=== PATIENT | female | born 1975 | race Caucasian/White ===

== ENCOUNTER 2022-09-16 17:37 | Emergency (ER) | payer MEDICAID, OTHER ==
[~2022-09-16] VITALS: Ht 157.5 cm; Wt 104.0 kg
[2022-09-16] MEDS ORDERED: AMOXICILLIN 200MG/5ml ORAL Susp 50ML PO ONE (19:45)
[2022-09-16] MEDS ORDERED: CHL12OR MT (20:17)
[2022-09-16] MEDS ORDERED: AMOX500C2 PO (20:17)
[2022-09-16 21:05] VITALS: BP 136/87
== END 2022-09-16 21:05 | disposition home or self-care (01) ==
LOC: EDBD 17:37 → ER 17:37
DX: F15.10 Other stimulant abuse, uncomplicated (principal); Z65.9 Problem related to unspecified psychosocial circumstances

== ENCOUNTER 2023-02-06 23:48 | Inpatient (IN) | payer MEDICAID ==
[~2023-02-06] VITALS: Ht 154.9 cm; Wt 97.0 kg
[~2023-02-06 23:48] MED LIST: AMOX500C2 PO; CHL12OR MT
[2023-02-07 01:40] VITALS: PULSE 103; RESP 16; O2SAT 97
[2023-02-07] MEDS ORDERED: IOHEXOL 350 MG/ML 100ML IJ ONE (01:57)
[2023-02-07 02:21] LABS: Basophils # (auto) 0 10 ^3/uL (0-0.2); Basophils % (auto) 0.5 % (0.0-2.0); Eosinophils # (auto) 0.1 10 ^3/uL (0-0.8); Eosinophils % (auto) 1.3 % (0.0-7.0); Hemoglobin 12.2 g/dL (12.2-16.2); Lymphocytes # (auto) 1.3 10 ^3/uL (0.4-5.4); Lymphocytes % (auto) 16.9 % (10.0-50.0); Mean Corpuscular Hemoglobin 27.5 pg (28.0-32.0); Mean Corpuscular Hgb Conc. 32.2 g/dL (32.0-36.0); Mean Corpuscular Volume 85.3 fL (80.0-100.0); Monocytes # (auto) 0.6 10 ^3/uL (0-1.3); Neutrophils # (auto) 5.9 10 ^3/uL (1.6-8.6); Neutrophils % (auto) 74.3 % (37.0-80.0); Nucleated Red Blood Cells % 0.1 %; Red Blood Cells 4.45 10^6/uL (4.0-5.20); Red Cell Distribution Width 16.2 % (11.8-14.3)
[2023-02-07 02:33] LABS: Acetaminophen < 2.0 UG/ML (10.0-20.0); Alanine Aminotransferase 16 U/L (7-40); Alkaline Phosphatase 97 U/L (46-116); Anion Gap 5 (5-15); Aspartate Aminotransferase 11 U/L (13-40); BUN/Creatinine Ratio 6.3 (10.0-20.0); Beta HCG, Quantitative 1.8 mIU/mL (1.5-4.2); Blood Alcohol 4.8 mg/dL (<10); Blood Urea Nitrogen 6 mg/dL (9-23); Calcium 8.7 mg/dL (8.7-10.4); Carbon Dioxide 26 mmol/L (20-30); Chloride 98 mmol/L (98-107); Magnesium 1.8 mg/dL (1.6-2.6); Potassium 3.9 mmol/L (3.5-5.1); Salicylate < 3.0 mg/dL (2.8-20.0); Sodium 129 mmol/L (136-145)
[2023-02-07 02:34] LABS: Bilirubin, Total 0.4 mg/dL (0.2-1.0); Total Protein 7.1 g/dL (5.7-8.2)
[2023-02-07 02:35] LABS: INR 0.99 (0.9-1.15); Partial Thromboplastin Time 26.5 SEC (24.5-34.5); Prothrombin Time 10.4 sec (9.3-11.8)
[2023-02-07 02:37] LABS: Thyroid Stimulating Hormone 7.39 uIU/mL (0.358-3.74)
[2023-02-07 02:38] LABS: Glucose 597 mg/dL (74-106)
[2023-02-07] MEDS ORDERED: SODIUM CHLORIDE 0.9% 2,000 ML IV ONE (02:41)
[2023-02-07] MEDS ORDERED: InsuLIN REG 1unit/0.01ml Soln (100units/ml) IV ONE (02:41)
[2023-02-07 03:47] LABS: Erythrocyte Sedimentation Rate 25 mm/hr (0-20)
[2023-02-07 06:54] LABS: Urine Bacteria NONE SEEN /hpf (None Seen); Urine Blood Negative /uL (Negative); Urine Clarity Clear (Clear); Urine Protein, UAD Negative (Negative); Urine Specific Gravity 1.032 (1.001-1.035); Urine Urobilinogen Normal (Negative); Urine WBC 13 /hpf (0 - 5); Urine pH 6.5 (5.0-8.0)
[2023-02-07] MEDS ORDERED: LACTATED RINGER'S 1,000 ML IV ONE (07:00)
[2023-02-07] MEDS ORDERED: PIPERACILLIN-TAZOB 3.375GM 100 ML IV ONE (07:00)
[2023-02-07] MEDS ORDERED: VANCOMYCIN 1GM/250ML 250 ML IV ONE (07:00)
[2023-02-07 07:11] LABS: Amphetamine Screen, Urine Neg (NEGATIVE); Barbiturate Scree,Urine Neg (NEGATIVE); Benzodiazephine Screen, Urine Neg (NEGATIVE); Cocaine Screen, Urine Neg (NEGATIVE); Opiate Scree,Urine Neg (NEGATIVE)
[2023-02-07 07:12] LABS: Cannabinoid Screen, Urine Neg (NEGATIVE); Phencyclidine Screen, Urine Neg (NEGATIVE)
[2023-02-07 07:22] LABS: Urine Color STRAW (Yellow)
[2023-02-07] MEDS ORDERED: HALOPERIDOL LACTATE 5 MG/ML INJ VIAL IM ONE (07:30)
[2023-02-07] MEDS ORDERED: diphenhdrAMINE HCL 50 MG/1 ML VL ONE (07:42)
[2023-02-07] MEDS ORDERED: LORazepam 2MG/ML-1ML VIAL ONE (07:42)
[2023-02-07 07:45] VITALS: O2SAT 96
[2023-02-07] MEDS ORDERED: diphenhdrAMINE HCL 50 MG/1 ML VL IM ONE (07:45)
[2023-02-07] MEDS ORDERED: LORazepam 2MG/ML-1ML VIAL IM ONE (07:45)
[2023-02-07] MEDS ORDERED: VANCOMYCIN PER PHARMACY 0 MG IV SCH (08:45)
[2023-02-07] MEDS ORDERED: MORPHINE SULFATE INJ 2 MG/ml SYRG IV PRN (08:45)
[2023-02-07] MEDS ORDERED: cefTRIAXone 1GM/50ML D5W 50 ML IV ONE (08:45)
[2023-02-07] MEDS ORDERED: DEXTROSE (50%) 50ML SYRG IV PRN (08:45)
[2023-02-07] MEDS ORDERED: NITROGLYCERIN 0.4 MG SL TAB SL PRN (08:45)
[2023-02-07 09:09] LABS: LDL Cholesterol 100 mg/dL (< 100); Triglycerides 202 mg/dL (< 150)
[2023-02-07 09:11] LABS: Cholesterol 150 mg/dL (< 200); HDL Cholesterol 35 mg/dL (40-59)
[2023-02-07] MEDS: VANCOMYCIN 1GM/250ML 250 ML IV SCH ×3 (09:30→18:00)
[2023-02-07] MEDS: SODIUM CHLORIDE 0.9% 1,000 ML IV SCH ×2 (09:41→17:05)
[2023-02-07] MEDS: ASCORBIC ACID 500 MG TAB PO SCH ×2 (10:00→22:29)
[2023-02-07] MEDS: ZINC SULFATE 220mg CAP or TAB PO SCH (10:00)
[2023-02-07] MEDS: MULTIPLE VITAMIN TAB PO SCH (10:00)
[2023-02-07] MEDS: ENOXAPARIN SOD 60 MG/0.6 ML SYRINGE SC SCH ×3 (11:43→22:37)
[2023-02-07] MEDS: cefTRIAXone 1GM/50ML D5W 50 ML IV SCH (11:44)
[2023-02-07] MEDS: ACCU-CHEK COMFORT CURVE STRIP VI SCH ×3 (11:44→22:29)
[2023-02-07] MEDS: InsuLIN REG 1unit/0.01ml Soln (100units/ml) SC SCH ×4 (11:57→22:36)
[2023-02-07 12:53] LABS: Free T3 2.99 pg/mL (2.3-4.2); Free T4 (Free Thyroxine) 0.81 ng/dL (0.89-1.76)
[2023-02-07 20:00] VITALS: PULSE 92; RESP 20; O2SAT 96
[2023-02-08 01:20] LABS: COVID19 ANTIGEN SOFIA FIA NEGATIVE (NEGATIVE)
[2023-02-08] MEDS: SODIUM CHLORIDE 0.9% 1,000 ML IV SCH ×3 (01:25→18:05)
[2023-02-08] MEDS: VANCOMYCIN 1GM/250ML 250 ML IV SCH ×3 (03:14→19:00)
[2023-02-08] MEDS: InsuLIN REG 1unit/0.01ml Soln (100units/ml) SC SCH ×3 (07:00→17:00)
[2023-02-08] MEDS: ACCU-CHEK COMFORT CURVE STRIP VI SCH ×4 (07:21→22:28)
[2023-02-08 08:00] VITALS: PULSE 103; RESP 26; O2SAT 97
[2023-02-08] MEDS: cefTRIAXone 1GM/50ML D5W 50 ML IV SCH (09:16)
[2023-02-08 10:14] LABS: Basophils # (auto) 0 10 ^3/uL (0-0.2); Basophils % (auto) 0.4 % (0.0-2.0); Eosinophils # (auto) 0.1 10 ^3/uL (0-0.8); Eosinophils % (auto) 0.9 % (0.0-7.0); Hematocrit 37.9 % (36.0-46.0); Hemoglobin 12.4 g/dL (12.2-16.2); Lymphocytes # (auto) 1.8 10 ^3/uL (0.4-5.4); Lymphocytes % (auto) 17.6 % (10.0-50.0); Mean Corpuscular Hemoglobin 27.9 pg (28.0-32.0); Mean Corpuscular Hgb Conc. 32.8 g/dL (32.0-36.0); Monocytes # (auto) 0.7 10 ^3/uL (0-1.3); Monocytes % (auto) 6.4 % (0.0-12.0); Neutrophils # (auto) 7.6 10 ^3/uL (1.6-8.6); Neutrophils % (auto) 74.7 % (37.0-80.0); Nucleated Red Blood Cells % 0.2 %; Red Blood Cells 4.46 10^6/uL (4.0-5.20); White Blood Cell 10.2 10^3/uL (4.4-10.8)
[2023-02-08 10:33] LABS: Alanine Aminotransferase 16 U/L (7-40); Alkaline Phosphatase 85 U/L (46-116); Anion Gap 5 (5-15); BUN/Creatinine Ratio 13.8 (10.0-20.0); Blood Urea Nitrogen 9 mg/dL (9-23); Calcium 8.8 mg/dL (8.5-10.1); Carbon Dioxide 26 mmol/L (20-30); Chloride 102 mmol/L (98-107); Glucose 250 mg/dL (74-106); Potassium 4.3 mmol/L (3.5-5.1); Sodium 133 mmol/L (136-145)
[2023-02-08 10:34] LABS: Albumin 3.7 g/dL (3.2-4.8); Aspartate Aminotransferase 19 U/L (13-40)
[2023-02-08 10:35] LABS: Bilirubin, Total 0.6 mg/dL (0.2-1.0); Total Protein 6.8 g/dL (5.7-8.2)
[2023-02-08] MEDS: ASCORBIC ACID 500 MG TAB PO SCH (12:55)
[2023-02-08] MEDS: MULTIPLE VITAMIN TAB PO SCH (12:55)
[2023-02-08] MEDS: ZINC SULFATE 220mg CAP or TAB PO SCH (12:55)
[2023-02-08] MEDS: ENOXAPARIN SOD 60 MG/0.6 ML SYRINGE SC SCH (12:55)
[2023-02-08 19:10] VITALS: BP 107/58; PULSE 97; RESP 18; TEMP 97.9; O2SAT 93
[2023-02-08 20:00] VITALS: PULSE 100; PULSE 92; RESP 18; O2SAT 96
[2023-02-08] MEDS: ACETAMINOPHEN 325 MG TAB PO PRN (20:26)
[2023-02-09] MEDS: InsuLIN REG 1unit/0.01ml Soln (100units/ml) SC SCH ×5 (02:45→22:08)
[2023-02-09] MEDS: ENOXAPARIN SOD 60 MG/0.6 ML SYRINGE SC SCH ×3 (02:47→22:02)
[2023-02-09] MEDS: ACETAMINOPHEN 325 MG TAB PO PRN ×4 (02:47→20:06)
[2023-02-09] MEDS: VANCOMYCIN 1GM/250ML 250 ML IV SCH ×3 (03:00→17:31)
[2023-02-09] MEDS: ASCORBIC ACID 500 MG TAB PO SCH ×3 (03:02→22:08)
[2023-02-09 05:00] VITALS: BP 107/64; PULSE 93; RESP 18; TEMP 98.5; O2SAT 92
[2023-02-09] MEDS: ACCU-CHEK COMFORT CURVE STRIP VI SCH ×4 (06:02→21:59)
[2023-02-09 08:00] VITALS: PULSE 80
[2023-02-09] MEDS ORDERED: VANCOMYCIN 1GM/250ML 250 ML IV SCH ×2 (08:00→09:30)
[2023-02-09] MEDS: cefTRIAXone 1GM/50ML D5W 50 ML IV SCH (09:35)
[2023-02-09 09:45] VITALS: BP 114/74; PULSE 81; RESP 18; TEMP 98.3; O2SAT 95
[2023-02-09] MEDS: MULTIPLE VITAMIN TAB PO SCH (10:00)
[2023-02-09] MEDS: ZINC SULFATE 220mg CAP or TAB PO SCH (10:00)
[2023-02-09] MEDS: SODIUM CHLORIDE 0.9% 1,000 ML IV SCH (10:50)
[2023-02-09 20:00] VITALS: PULSE 85
[2023-02-09 22:00] VITALS: BP 114/66; PULSE 84; RESP 18; TEMP 97.8; O2SAT 95
[2023-02-10] VITALS (7 sets, daily range): BP systolic 101–135; BP diastolic 64–88; PULSE 74–99; RESP 16–20; TEMP 97.9–98.5; O2SAT 93–98
[2023-02-10] MEDS: ACETAMINOPHEN 325 MG TAB PO PRN (01:40)
[2023-02-10] MEDS: InsuLIN REG 1unit/0.01ml Soln (100units/ml) SC SCH ×4 (05:47→22:00)
[2023-02-10] MEDS: ACCU-CHEK COMFORT CURVE STRIP VI SCH ×4 (05:47→22:00)
[2023-02-10] MEDS ORDERED: VANCOMYCIN 1GM/250ML 250 ML IV SCH (08:00)
[2023-02-10] MEDS: ZINC SULFATE 220mg CAP or TAB PO SCH (09:55)
[2023-02-10] MEDS: MULTIPLE VITAMIN TAB PO SCH (09:56)
[2023-02-10] MEDS: ASCORBIC ACID 500 MG TAB PO SCH ×2 (09:56→22:52)
[2023-02-10] MEDS: ENOXAPARIN SOD 60 MG/0.6 ML SYRINGE SC SCH ×2 (09:56→22:52)
[2023-02-10] MEDS: NICOTINE 21MG/24 HR TOPICAL PATCH TD SCH (09:57)
[2023-02-10] MEDS: cefTRIAXone 1GM/50ML D5W 50 ML IV SCH (10:52)
[2023-02-10] MEDS: SODIUM CHLORIDE 0.9% 1,000 ML IV SCH ×3 (11:45→23:57)
[2023-02-10] MEDS: VANCOMYCIN 1GM/250ML 250 ML IV SCH ×2 (12:24→20:11)
[2023-02-10 14:32] LABS: Chloride 104 mmol/L (98-107); Sodium 135 mmol/L (136-145)
[2023-02-10 14:33] LABS: Anion Gap 7 (5-15); Carbon Dioxide 24 mmol/L (20-30)
[2023-02-10 14:34] LABS: Calcium 8.7 mg/dL (8.7-10.4)
[2023-02-10 14:38] LABS: Glucose 155 mg/dL (74-106)
[2023-02-10 14:43] LABS: BUN/Creatinine Ratio 8.9 (10.0-20.0); Basophils # (auto) 0 10 ^3/uL (0-0.2); Basophils % (auto) 0.5 % (0.0-2.0); Blood Urea Nitrogen < 5 mg/dL (9-23); Eosinophils # (auto) 0.1 10 ^3/uL (0-0.8); Eosinophils % (auto) 2.5 % (0.0-7.0); Hemoglobin 11.5 g/dL (12.2-16.2); Lymphocytes # (auto) 1.7 10 ^3/uL (0.4-5.4); Lymphocytes % (auto) 32.7 % (10.0-50.0); Mean Corpuscular Hemoglobin 27.4 pg (28.0-32.0); Mean Corpuscular Hgb Conc. 32.8 g/dL (32.0-36.0); Mean Corpuscular Volume 83.4 fL (80.0-100.0); Monocytes # (auto) 0.5 10 ^3/uL (0-1.3); Neutrophils # (auto) 2.8 10 ^3/uL (1.6-8.6); Neutrophils % (auto) 55.3 % (37.0-80.0); Red Cell Distribution Width 15.2 % (11.8-14.3); White Blood Cell 5.1 10^3/uL (4.4-10.8)
[2023-02-11] MEDS: VANCOMYCIN 1GM/250ML 250 ML IV SCH ×3 (04:45→20:22)
[2023-02-11 04:52] VITALS: BP 133/68; PULSE 90; RESP 17; TEMP 97.8; O2SAT 94
[2023-02-11] MEDS: ACETAMINOPHEN 325 MG TAB PO PRN (06:19)
[2023-02-11 06:26] LABS: Calcium 8.6 mg/dL (8.7-10.4); Chloride 103 mmol/L (98-107); Potassium 4.3 mmol/L (3.5-5.1); Sodium 134 mmol/L (136-145)
[2023-02-11 06:27] LABS: Anion Gap 6 (5-15); Carbon Dioxide 25 mmol/L (20-30)
[2023-02-11 06:32] LABS: BUN/Creatinine Ratio 7.1 (10.0-20.0); Blood Urea Nitrogen 5 mg/dL (9-23); Glucose 289 mg/dL (74-106)
[2023-02-11 06:47] LABS: Basophils # (auto) 0.1 10 ^3/uL (0-0.2); Basophils % (auto) 1.1 % (0.0-2.0); Eosinophils # (auto) 0.1 10 ^3/uL (0-0.8); Eosinophils % (auto) 2.3 % (0.0-7.0); Hematocrit 36.8 % (36.0-46.0); Hemoglobin 11.9 g/dL (12.2-16.2); Lymphocytes # (auto) 1.7 10 ^3/uL (0.4-5.4); Lymphocytes % (auto) 31.1 % (10.0-50.0); Mean Corpuscular Hemoglobin 27.1 pg (28.0-32.0); Mean Corpuscular Hgb Conc. 32.4 g/dL (32.0-36.0); Mean Corpuscular Volume 83.7 fL (80.0-100.0); Monocytes # (auto) 0.5 10 ^3/uL (0-1.3); Neutrophils # (auto) 3.1 10 ^3/uL (1.6-8.6); Neutrophils % (auto) 56.5 % (37.0-80.0); Nucleated Red Blood Cells % 0.3 %; Red Cell Distribution Width 15.4 % (11.8-14.3); White Blood Cell 5.5 10^3/uL (4.4-10.8)
[2023-02-11] MEDS: InsuLIN REG 1unit/0.01ml Soln (100units/ml) SC SCH ×4 (07:00→22:00)
[2023-02-11] MEDS: ACCU-CHEK COMFORT CURVE STRIP VI SCH ×4 (07:12→22:00)
[2023-02-11 08:00] VITALS: PULSE 80
[2023-02-11] MEDS: cefTRIAXone 1GM/50ML D5W 50 ML IV SCH (08:42)
[2023-02-11] MEDS: NICOTINE 21MG/24 HR TOPICAL PATCH TD SCH (08:43)
[2023-02-11 09:00] VITALS: BP 99/49; PULSE 80; RESP 20; TEMP 97.6; O2SAT 96
[2023-02-11] MEDS: MULTIPLE VITAMIN TAB PO SCH (10:00)
[2023-02-11] MEDS: ASCORBIC ACID 500 MG TAB PO SCH ×2 (10:00→22:00)
[2023-02-11] MEDS: ENOXAPARIN SOD 60 MG/0.6 ML SYRINGE SC SCH ×2 (10:00→22:00)
[2023-02-11] MEDS: ZINC SULFATE 220mg CAP or TAB PO SCH (10:00)
[2023-02-11] MEDS: SODIUM CHLORIDE 0.9% 1,000 ML IV SCH (12:45)
[2023-02-11 13:00] VITALS: BP 105/55; PULSE 88; RESP 18; TEMP 97.8; O2SAT 95
[2023-02-11 20:00] VITALS: PULSE 88
[2023-02-11 22:00] VITALS: BP 120/43; PULSE 82; RESP 18; TEMP 97.6; O2SAT 100
[2023-02-11] MEDS: NYSTATIN TOPICAL POWDER 15GM TOP SCH (22:00)
[2023-02-12] VITALS (7 sets, daily range): BP systolic 111–130; BP diastolic 64–87; PULSE 81–89; RESP 17–20; TEMP 97.5–98.6; O2SAT 95–98
[2023-02-12] MEDS: ACETAMINOPHEN 325 MG TAB PO PRN (02:48)
[2023-02-12] MEDS: INSULIN LANTUS (GLARGINE) 1 /0.01ml (100units/ml) SC SCH ×2 (02:51→22:04)
[2023-02-12] MEDS: VANCOMYCIN 1GM/250ML 250 ML IV SCH ×4 (04:00→23:00)
[2023-02-12] MEDS: ACCU-CHEK COMFORT CURVE STRIP VI SCH ×4 (06:03→22:02)
[2023-02-12] MEDS: InsuLIN REG 1unit/0.01ml Soln (100units/ml) SC SCH ×4 (06:04→22:07)
[2023-02-12] MEDS: SODIUM CHLORIDE 0.9% 1,000 ML IV SCH ×3 (07:45→22:05)
[2023-02-12] MEDS: cefTRIAXone 1GM/50ML D5W 50 ML IV SCH ×2 (09:00→14:45)
[2023-02-12] MEDS: NYSTATIN TOPICAL POWDER 15GM TOP SCH ×3 (10:00→22:00)
[2023-02-12 12:06] LABS: Basophils # (auto) 0.1 10 ^3/uL (0-0.2); Basophils % (auto) 1.3 % (0.0-2.0); Eosinophils # (auto) 0.1 10 ^3/uL (0-0.8); Eosinophils % (auto) 2.7 % (0.0-7.0); Hematocrit 36.1 % (36.0-46.0); Hemoglobin 11.8 g/dL (12.2-16.2); Lymphocytes # (auto) 1.8 10 ^3/uL (0.4-5.4); Lymphocytes % (auto) 34.1 % (10.0-50.0); Mean Corpuscular Hemoglobin 27.6 pg (28.0-32.0); Mean Corpuscular Hgb Conc. 32.8 g/dL (32.0-36.0); Mean Corpuscular Volume 84.2 fL (80.0-100.0); Monocytes # (auto) 0.4 10 ^3/uL (0-1.3); Monocytes % (auto) 8.6 % (0.0-12.0); Neutrophils # (auto) 2.8 10 ^3/uL (1.6-8.6); Neutrophils % (auto) 53.3 % (37.0-80.0); Nucleated Red Blood Cells % 0.5 %; Red Blood Cells 4.29 10^6/uL (4.0-5.20); Red Cell Distribution Width 15.4 % (11.8-14.3); White Blood Cell 5.2 10^3/uL (4.4-10.8)
[2023-02-12] MEDS: ZINC SULFATE 220mg CAP or TAB PO SCH (12:10)
[2023-02-12] MEDS: ASCORBIC ACID 500 MG TAB PO SCH ×2 (12:10→22:02)
[2023-02-12] MEDS: MULTIPLE VITAMIN TAB PO SCH (12:10)
[2023-02-12] MEDS: ENOXAPARIN SOD 60 MG/0.6 ML SYRINGE SC SCH ×2 (12:11→22:00)
[2023-02-12] MEDS: OLANZapine 5 MG TAB PO SCH (12:11)
[2023-02-12 12:20] LABS: Alanine Aminotransferase 17 U/L (7-40); Albumin 3.7 g/dL (3.2-4.8); Alkaline Phosphatase 73 U/L (46-116); Anion Gap 5 (5-15); Aspartate Aminotransferase 30 U/L (13-40); Calcium 8.8 mg/dL (8.5-10.1); Carbon Dioxide 26 mmol/L (20-30); Chloride 101 mmol/L (98-107); Glucose 301 mg/dL (74-106); Potassium 4.4 mmol/L (3.5-5.1); Sodium 132 mmol/L (136-145)
[2023-02-12 12:21] LABS: Bilirubin, Total 0.3 mg/dL (0.2-1.0); Total Protein 6.7 g/dL (5.7-8.2)
[2023-02-12 12:22] LABS: BUN/Creatinine Ratio 6.8 (10.0-20.0); Blood Urea Nitrogen < 5 mg/dL (9-23)
[2023-02-12] MEDS: NICOTINE 21MG/24 HR TOPICAL PATCH TD SCH (12:51)
[2023-02-13] MEDS: ACETAMINOPHEN 325 MG TAB PO PRN (02:49)
[2023-02-13 05:00] VITALS: BP 120/77; PULSE 88; RESP 17; TEMP 98.4; O2SAT 96
[2023-02-13] MEDS: ACCU-CHEK COMFORT CURVE STRIP VI SCH ×4 (05:21→22:35)
[2023-02-13] MEDS: InsuLIN REG 1unit/0.01ml Soln (100units/ml) SC SCH ×4 (05:22→22:37)
[2023-02-13] MEDS: SODIUM CHLORIDE 0.9% 1,000 ML IV SCH ×3 (05:23→23:03)
[2023-02-13] MEDS: VANCOMYCIN 1GM/250ML 250 ML IV SCH ×3 (06:02→22:55)
[2023-02-13 08:00] VITALS: PULSE 82
[2023-02-13] MEDS: cefTRIAXone 1GM/50ML D5W 50 ML IV SCH (08:49)
[2023-02-13] MEDS: ENOXAPARIN SOD 60 MG/0.6 ML SYRINGE SC SCH ×2 (08:50→22:35)
[2023-02-13] MEDS: ASCORBIC ACID 500 MG TAB PO SCH ×2 (08:50→22:35)
[2023-02-13] MEDS: OLANZapine 5 MG TAB PO SCH (08:50)
[2023-02-13] MEDS: ZINC SULFATE 220mg CAP or TAB PO SCH (08:50)
[2023-02-13] MEDS: MULTIPLE VITAMIN TAB PO SCH (08:50)
[2023-02-13] MEDS: NYSTATIN TOPICAL POWDER 15GM TOP SCH ×2 (10:00→22:38)
[2023-02-13] MEDS ORDERED: LORazepam 2MG/ML-1ML VIAL IV PRN (10:15)
[2023-02-13] MEDS ORDERED: HALOPERIDOL LACTATE 5 MG/ML INJ VIAL IV PRN (10:45)
[2023-02-13] MEDS: NICOTINE 21MG/24 HR TOPICAL PATCH TD SCH (11:47)
[2023-02-13] MEDS: metFORMIN HYDROCHLORIDE 850 MG TAB PO SCH (17:41)
[2023-02-13 20:00] VITALS: BP 106/56; PULSE 79; PULSE 88; RESP 18; TEMP 97.9; O2SAT 97
[2023-02-13 22:00] VITALS: BP 106/56; PULSE 79; RESP 18; TEMP 97.9; O2SAT 97
[2023-02-13] MEDS: INSULIN LANTUS (GLARGINE) 1 /0.01ml (100units/ml) SC SCH (22:36)
[2023-02-14 05:00] VITALS: BP 91/52; PULSE 78; RESP 20; O2SAT 95
[2023-02-14] MEDS: VANCOMYCIN 1GM/250ML 250 ML IV SCH (06:22)
[2023-02-14] MEDS: ACCU-CHEK COMFORT CURVE STRIP VI SCH ×4 (06:31→22:32)
[2023-02-14] MEDS: InsuLIN REG 1unit/0.01ml Soln (100units/ml) SC SCH ×4 (06:31→22:00)
[2023-02-14 07:37] VITALS: PULSE 79
[2023-02-14] MEDS: cefTRIAXone 1GM/50ML D5W 50 ML IV SCH (09:00)
[2023-02-14] MEDS: ZINC SULFATE 220mg CAP or TAB PO SCH (09:04)
[2023-02-14] MEDS: SODIUM CHLORIDE 0.9% 1,000 ML IV SCH (09:04)
[2023-02-14] MEDS: MULTIPLE VITAMIN TAB PO SCH (09:05)
[2023-02-14] MEDS: NICOTINE 21MG/24 HR TOPICAL PATCH TD SCH (09:08)
[2023-02-14] MEDS: OLANZapine 5 MG TAB PO SCH (09:11)
[2023-02-14] MEDS: ASCORBIC ACID 500 MG TAB PO SCH ×2 (09:11→21:32)
[2023-02-14] MEDS: metFORMIN HYDROCHLORIDE 850 MG TAB PO SCH ×2 (09:13→16:29)
[2023-02-14] MEDS: ENOXAPARIN SOD 60 MG/0.6 ML SYRINGE SC SCH ×2 (09:13→22:00)
[2023-02-14] MEDS: NYSTATIN TOPICAL POWDER 15GM TOP SCH ×2 (11:33→22:00)
[2023-02-14 13:20] LABS: Basophils # (auto) 0 10 ^3/uL (0-0.2); Basophils % (auto) 0.6 % (0.0-2.0); Eosinophils # (auto) 0.1 10 ^3/uL (0-0.8); Eosinophils % (auto) 1.6 % (0.0-7.0); Hematocrit 37.2 % (36.0-46.0); Hemoglobin 12.1 g/dL (12.2-16.2); Lymphocytes # (auto) 2.1 10 ^3/uL (0.4-5.4); Lymphocytes % (auto) 26.8 % (10.0-50.0); Mean Corpuscular Hgb Conc. 32.4 g/dL (32.0-36.0); Mean Corpuscular Volume 83.2 fL (80.0-100.0); Monocytes # (auto) 0.5 10 ^3/uL (0-1.3); Neutrophils # (auto) 4.9 10 ^3/uL (1.6-8.6); Red Blood Cells 4.47 10^6/uL (4.0-5.20); Red Cell Distribution Width 15.5 % (11.8-14.3); White Blood Cell 7.7 10^3/uL (4.4-10.8)
[2023-02-14 13:30] VITALS: BP 123/79; PULSE 102; RESP 20; O2SAT 99
[2023-02-14 13:35] LABS: Alanine Aminotransferase 19 U/L (7-40); Alkaline Phosphatase 66 U/L (46-116); Anion Gap 8 (5-15); Aspartate Aminotransferase 15 U/L (13-40); BUN/Creatinine Ratio 7.4 (10.0-20.0); Blood Urea Nitrogen 5 mg/dL (9-23); Calcium 8.4 mg/dL (8.5-10.1); Carbon Dioxide 24 mmol/L (20-30); Chloride 102 mmol/L (98-107); Glucose 283 mg/dL (74-106); Potassium 4.1 mmol/L (3.5-5.1); Sodium 134 mmol/L (136-145)
[2023-02-14 13:36] LABS: Albumin 3.4 g/dL (3.2-4.8); Bilirubin, Total 0.3 mg/dL (0.2-1.0); Total Protein 6.1 g/dL (5.7-8.2)
[2023-02-14] MEDS: ACETAMINOPHEN 325 MG TAB PO PRN (16:05)
[2023-02-14 17:00] VITALS: BP 101/68; PULSE 79; RESP 22; TEMP 98; O2SAT 95
[2023-02-14] MEDS: DOXYCYCLINE 100 MG TAB/CAP PO SCH (21:32)
[2023-02-14] MEDS: INSULIN LANTUS (GLARGINE) 1 /0.01ml (100units/ml) SC SCH (22:00)
[2023-02-15 05:00] VITALS: BP 96/60; PULSE 59; RESP 20; O2SAT 59
[2023-02-15] MEDS: ACCU-CHEK COMFORT CURVE STRIP VI SCH ×3 (07:00→11:05)
[2023-02-15] MEDS: InsuLIN REG 1unit/0.01ml Soln (100units/ml) SC SCH ×2 (07:00→11:06)
[2023-02-15 08:00] VITALS: PULSE 92
[2023-02-15 09:19] VITALS: BP 93/64; PULSE 87; RESP 20; O2SAT 99
[2023-02-15] MEDS: OLANZapine 5 MG TAB PO SCH (10:00)
[2023-02-15] MEDS: ASCORBIC ACID 500 MG TAB PO SCH (10:50)
[2023-02-15] MEDS: DOXYCYCLINE 100 MG TAB/CAP PO SCH (10:50)
[2023-02-15] MEDS: metFORMIN HYDROCHLORIDE 850 MG TAB PO SCH (10:50)
[2023-02-15] MEDS: NICOTINE 21MG/24 HR TOPICAL PATCH TD SCH (10:50)
[2023-02-15] MEDS: MULTIPLE VITAMIN TAB PO SCH (10:50)
[2023-02-15] MEDS: ZINC SULFATE 220mg CAP or TAB PO SCH (10:51)
[2023-02-15] MEDS: ENOXAPARIN SOD 60 MG/0.6 ML SYRINGE SC SCH (10:58)
[2023-02-15] MEDS: NYSTATIN TOPICAL POWDER 15GM TOP SCH (10:58)
[2023-02-15 12:11] VITALS: BP 93/64; PULSE 84; RESP 18; TEMP 36.7; O2SAT 95
== END 2023-02-15 13:35 | disposition home or self-care (01) | DRG 383 ==
LOC: ER 23:48 → EDBD 23:48 → TELE 02-07 08:45 → TELE-CENTR 02-08 18:57
PROVIDERS: ADMIT Nurse Practitioner Family; ATTEND Nurse Practitioner Acute Care
DX: L03.312 Cellulitis of back [any part except buttock and flank] (principal); G93.41 Metabolic encephalopathy; R45.851 Suicidal ideations; F29 Unspecified psychosis not due to a substance or known physiological condition; E11.65 Type 2 diabetes mellitus with hyperglycemia; E66.01 Morbid (severe) obesity due to excess calories; E86.0 Dehydration; Z20.822 Contact with and (suspected) exposure to COVID-19; F31.9 Bipolar disorder, unspecified; L72.3 Sebaceous cyst; Z79.84 Long term (current) use of oral hypoglycemic drugs; Z80.3 Family history of malignant neoplasm of breast; Z91.148 Patient's other noncompliance with medication regimen for other reason; Z78.1 Physical restraint status; Z56.0 Unemployment, unspecified; Z68.41 Body mass index [BMI] 40.0-44.9, adult
CPT/HCPCS: 36415; 80048; 80053; 80061; 80202; 80307; 80320; 80329; 81001; 81025; 82010; 82565; 82962; 83036; 83605; 83735; 84439; 84443; 84481; 84484; 84702; 85025; 85610; 85652; 85730; 86141; 87205; 87426; 97110; 97116; 97163; 97530; G0378; J0696; J1815

== ENCOUNTER 2023-02-23 08:02 | Emergency (ER) | payer MEDICAID ==
[~2023-02-23] VITALS: Ht 165.1 cm; Wt 97.8 kg
[2023-02-23 09:06] LABS: Basophils # (auto) 0.1 10 ^3/uL (0-0.2); Eosinophils # (auto) 0.1 10 ^3/uL (0-0.8); Lymphocytes # (auto) 1.8 10 ^3/uL (0.4-5.4); Mean Corpuscular Hemoglobin 27.3 pg (28.0-32.0); Mean Corpuscular Hgb Conc. 32.8 g/dL (32.0-36.0); Monocytes # (auto) 0.4 10 ^3/uL (0-1.3)
[2023-02-23 09:08] LABS: Basophils % (auto) 1.3 % (0.0-2.0); Eosinophils % (auto) 2.6 % (0.0-7.0); Hematocrit 36.2 % (36.0-46.0); Hemoglobin 11.9 g/dL (12.2-16.2); Lymphocytes % (auto) 30.8 % (10.0-50.0); Mean Corpuscular Volume 83.3 fL (80.0-100.0); Monocytes % (auto) 6.8 % (0.0-12.0); Neutrophils # (auto) 3.4 10 ^3/uL (1.6-8.6); Neutrophils % (auto) 58.5 % (37.0-80.0); Red Blood Cells 4.35 10^6/uL (4.0-5.20); Red Cell Distribution Width 15.2 % (11.8-14.3); White Blood Cell 5.8 10^3/uL (4.4-10.8)
[2023-02-23 09:18] LABS: Alanine Aminotransferase 21 U/L (7-40); Albumin 4.2 g/dL (3.2-4.8); Alkaline Phosphatase 99 U/L (46-116); Anion Gap 6 (5-15); Aspartate Aminotransferase 14 U/L (13-40); BUN/Creatinine Ratio 7.2 (10.0-20.0); Bilirubin, Total 0.4 mg/dL (0.2-1.0); Blood Urea Nitrogen 6 mg/dL (9-23); Calcium 9.5 mg/dL (8.5-10.1); Carbon Dioxide 27 mmol/L (20-30); Chloride 99 mmol/L (98-107); Glucose 298 mg/dL (74-106); Potassium 4.2 mmol/L (3.5-5.1); Sodium 132 mmol/L (136-145); Total Protein 7.5 g/dL (5.7-8.2)
[2023-02-23] MEDS ORDERED: NICOTINE 7MG/24HR TOPICAL PATCH TD ONE (11:15)
[2023-02-23] MEDS ORDERED: cefTRIAXone 1GM/50ML D5W 50 ML IV ONE (11:30)
[2023-02-23] MEDS ORDERED: BACI1OIN45 EX (13:02)
[2023-02-23] MEDS ORDERED: BACDST PO (13:02)
[2023-02-23 13:30] LABS: Urine Bacteria NONE SEEN /hpf (None Seen); Urine Blood Negative /uL (Negative); Urine Clarity Clear (Clear); Urine Protein, UAD Negative (Negative); Urine Specific Gravity 1.012 (1.001-1.035); Urine Urobilinogen Normal (Negative); Urine WBC <1 /hpf (0 - 5); Urine pH 6.5 (5.0-8.0)
[2023-02-23 13:31] LABS: Urine Color STRAW (Yellow)
[2023-02-23 13:40] LABS: Amphetamine Screen, Urine Neg (NEGATIVE); Barbiturate Scree,Urine Neg (NEGATIVE); Benzodiazephine Screen, Urine Neg (NEGATIVE); Cocaine Screen, Urine Neg (NEGATIVE); Opiate Scree,Urine Neg (NEGATIVE)
[2023-02-23 13:41] VITALS: BP 124/86; PULSE 83; RESP 11; TEMP 98.6; O2SAT 100
[2023-02-23 13:41] LABS: Cannabinoid Screen, Urine Neg (NEGATIVE); Phencyclidine Screen, Urine Neg (NEGATIVE)
== END 2023-02-23 16:40 | disposition home or self-care (01) ==
LOC: ER 08:02
DX: L02.212 Cutaneous abscess of back [any part, except buttock and flank] (principal); F20.9 Schizophrenia, unspecified; E11.65 Type 2 diabetes mellitus with hyperglycemia; Z79.2 Long term (current) use of antibiotics; Z79.899 Other long term (current) drug therapy
CPT/HCPCS: 36415; 80053; 80307; 81001; 85025; 87205; 96365; 96366; 99284; J0696

== ENCOUNTER 2023-05-04 22:31 | Emergency (ER) | payer MEDICAID ==
[~2023-05-04] VITALS: Ht 167.6 cm; Wt 100.0 kg
[~2023-05-04 22:31] MED LIST changes: +BACDST PO; +BACI1OIN45 EX
[2023-05-04 22:49] VITALS: BP 116/87; PULSE 101; RESP 20; O2SAT 97
== END 2023-05-05 03:45 | disposition home or self-care (01) ==
LOC: ER 22:31 → EDBD 22:31 → ER 05-05 03:45
DX: M79.10 Myalgia, unspecified site (principal); E11.9 Type 2 diabetes mellitus without complications; F15.10 Other stimulant abuse, uncomplicated

== ENCOUNTER 2023-08-01 22:12 | Inpatient (IN) | payer MEDICAID ==
[~2023-08-01] VITALS: Ht 162.6 cm; Wt 92.8 kg
[2023-08-01 23:02] VITALS: PULSE 125; RESP 24; O2SAT 96
[2023-08-01] MEDS ORDERED: diphenhdrAMINE HCL 50 MG/1 ML VL IV ONE (23:45)
[2023-08-01] MEDS ORDERED: LORazepam 2MG/ML-1ML VIAL IV ONE (23:45)
[2023-08-01] MEDS: SODIUM CHLORIDE 0.9% 1,000 ML IVB ONE (23:45)
[2023-08-02] MEDS: HALOPERIDOL LACTATE 5 MG/ML INJ VIAL IM ONE (00:12)
[2023-08-02] MEDS: LORazepam 2MG/ML-1ML VIAL IM ONE (00:30)
[2023-08-02] MEDS: diphenhdrAMINE HCL 50 MG/1 ML VL IM ONE (00:30)
[2023-08-02 05:01] LABS: Basophils # (auto) 0.1 10 ^3/uL (0-0.2); Basophils % (auto) 0.9 % (0.0-2.0); Eosinophils # (auto) 0 10 ^3/uL (0-0.8); Eosinophils % (auto) 0.1 % (0.0-7.0); Hematocrit 36.1 % (36.0-46.0); Hemoglobin 11.7 g/dL (12.2-16.2); Lymphocytes % (auto) 8.1 % (10.0-50.0); Mean Corpuscular Hemoglobin 27.7 pg (28.0-32.0); Mean Corpuscular Hgb Conc. 32.3 g/dL (32.0-36.0); Mean Corpuscular Volume 85.7 fL (80.0-100.0); Monocytes # (auto) 0.3 10 ^3/uL (0-1.3); Monocytes % (auto) 2.6 % (0.0-12.0); Neutrophils # (auto) 10.9 10 ^3/uL (1.6-8.6); Neutrophils % (auto) 88.3 % (37.0-80.0); Nucleated Red Blood Cells % 0.1 %; Red Blood Cells 4.21 10^6/uL (4.0-5.20); Red Cell Distribution Width 15.7 % (11.8-14.3); White Blood Cell 12.4 10^3/uL (4.4-10.8)
[2023-08-02 05:18] LABS: Alanine Aminotransferase 23 U/L (7-40); Albumin 4.1 g/dL (3.2-4.8); Alkaline Phosphatase 96 U/L (46-116); Anion Gap 9 (5-15); Aspartate Aminotransferase 23 U/L (13-40); BUN/Creatinine Ratio 13.5 (10.0-20.0); Bilirubin, Total 0.4 mg/dL (0.2-1.0); Blood Alcohol < 3.0 mg/dL (<10); Blood Urea Nitrogen 10 mg/dL (9-23); Calcium 9.4 mg/dL (8.5-10.1); Carbon Dioxide 24 mmol/L (20-30); Chloride 101 mmol/L (98-107); Glucose 298 mg/dL (74-106); Sodium 134 mmol/L (136-145); Total Protein 7.6 g/dL (5.7-8.2)
[2023-08-02 07:20] VITALS: PULSE 98; RESP 23; O2SAT 95
[2023-08-02] MEDS ORDERED: ONDANSETRON HCL 4 MG/2 ML VIAL IV PRN (08:45)
[2023-08-02] MEDS: SODIUM CHLORIDE 0.9% 1,000 ML IV SCH (08:45)
[2023-08-02] MEDS ORDERED: MORPHINE SULFATE INJ 2 MG/ml SYRG IV PRN (08:45)
[2023-08-02] MEDS ORDERED: DOCUSATE SOD 100 MG CAP PO PRN (08:45)
[2023-08-02] MEDS ORDERED: LORazepam 2MG/ML-1ML VIAL IV PRN (11:15)
[2023-08-02] MEDS ORDERED: DEXTROSE (50%) 50ML SYRG IV PRN (11:15)
[2023-08-02] MEDS: InsuLIN REG 1unit/0.01ml Soln (100units/ml) SC SCH (12:00)
[2023-08-02] MEDS: ACCU-CHEK COMFORT CURVE STRIP VI SCH (12:00)
[2023-08-02 19:30] VITALS: PULSE 104; RESP 20; O2SAT 98
[2023-08-03 05:38] LABS: Basophils # (auto) 0 10 ^3/uL (0-0.2); Basophils % (auto) 0.4 % (0.0-2.0); Eosinophils # (auto) 0.1 10 ^3/uL (0-0.8); Hemoglobin 11.9 g/dL (12.2-16.2); Lymphocytes # (auto) 1.6 10 ^3/uL (0.4-5.4); Mean Corpuscular Volume 86.1 fL (80.0-100.0); Monocytes # (auto) 0.5 10 ^3/uL (0-1.3); Neutrophils # (auto) 5.8 10 ^3/uL (1.6-8.6)
[2023-08-03 05:40] LABS: Eosinophils % (auto) 1.5 % (0.0-7.0); Hematocrit 36.1 % (36.0-46.0); Lymphocytes % (auto) 19.6 % (10.0-50.0); Mean Corpuscular Hemoglobin 28.2 pg (28.0-32.0); Mean Corpuscular Hgb Conc. 32.8 g/dL (32.0-36.0); Neutrophils % (auto) 72.5 % (37.0-80.0); Red Cell Distribution Width 15.8 % (11.8-14.3)
[2023-08-03 05:54] LABS: Alanine Aminotransferase 18 U/L (7-40); Albumin 3.7 g/dL (3.2-4.8); Alkaline Phosphatase 92 U/L (46-116); Anion Gap 6 (5-15); Aspartate Aminotransferase 19 U/L (13-40); BUN/Creatinine Ratio 14.3 (10.0-20.0); Bilirubin, Total 0.5 mg/dL (0.2-1.0); Blood Urea Nitrogen 11 mg/dL (9-23); Calcium 9.2 mg/dL (8.5-10.1); Carbon Dioxide 25 mmol/L (20-30); Chloride 103 mmol/L (98-107); Glucose 182 mg/dL (74-106); Potassium 4.3 mmol/L (3.5-5.1); Sodium 134 mmol/L (136-145)
[2023-08-03 06:06] LABS: RPR Non Reactive (Non Reactive)
[2023-08-03 07:30] VITALS: PULSE 98; RESP 16; O2SAT 97
[2023-08-03 18:48] LABS: Urine Bacteria FEW /hpf (None Seen); Urine Blood 1+ /uL (Negative); Urine Clarity Turbid (Clear); Urine Color Colorless (Yellow); Urine Protein, UAD Negative (Negative); Urine Specific Gravity 1.009 (1.001-1.035); Urine Urobilinogen Normal (Negative); Urine WBC 33 /hpf (0 - 5); Urine pH 5.5 (5.0-9.0)
[2023-08-03 18:49] VITALS: BP 137/84; PULSE 89; RESP 19; TEMP 97.5; O2SAT 96
[2023-08-03 18:53] LABS: Amphetamine Screen, Urine Neg (NEGATIVE); Barbiturate Scree,Urine Neg (NEGATIVE); Benzodiazephine Screen, Urine Pos (NEGATIVE); Cannabinoid Screen, Urine Pos (NEGATIVE); Cocaine Screen, Urine Neg (NEGATIVE); Opiate Scree,Urine Neg (NEGATIVE); Phencyclidine Screen, Urine Neg (NEGATIVE)
[2023-08-03 18:58] VITALS: PULSE 85; RESP 18; O2SAT 95
[2023-08-03 20:00] VITALS: PULSE 93; RESP 18
[2023-08-03 21:00] VITALS: BP 130/70; PULSE 99; RESP 19; TEMP 99; O2SAT 94
[2023-08-04] VITALS (7 sets, daily range): BP systolic 101–126; BP diastolic 48–71; PULSE 86–108; RESP 16–20; TEMP 97.6–99.2; O2SAT 94–98
[2023-08-04] MEDS: OLANZapine 5 MG TAB PO SCH (09:15)
[2023-08-05] VITALS (7 sets, daily range): BP systolic 114–130; BP diastolic 61–78; PULSE 88–104; RESP 18–19; TEMP 97.3–99; O2SAT 93–99
[2023-08-05] MEDS: OLANZapine 5 MG TAB PO SCH (08:23)
[2023-08-05] MEDS ORDERED: ONDANSETRON HCL 4 MG/2 ML VIAL IV PRN (11:15)
[2023-08-05] MEDS ORDERED: ACETAMINOPHEN 500 MG TAB PO PRN (11:15)
[2023-08-05] MEDS ORDERED: MORPHINE SULFATE INJ 2 MG/ml SYRG IV PRN (11:15)
[2023-08-05] MEDS ORDERED: HYDROcodone-ACET 5/325MG TAB PO PRN (11:15)
[2023-08-05 11:51] LABS: Eosinophils # (auto) 0.1 10 ^3/uL (0-0.8); Eosinophils % (auto) 0.8 % (0.0-7.0); Monocytes # (auto) 0.5 10 ^3/uL (0-1.3); Neutrophils # (auto) 5.6 10 ^3/uL (1.6-8.6)
[2023-08-05 11:52] LABS: Basophils # (auto) 0.1 10 ^3/uL (0-0.2); Basophils % (auto) 0.6 % (0.0-2.0); Hematocrit 36.1 % (36.0-46.0); Hemoglobin 11.9 g/dL (12.2-16.2); Lymphocytes # (auto) 1.8 10 ^3/uL (0.4-5.4); Lymphocytes % (auto) 22.4 % (10.0-50.0); Mean Corpuscular Hemoglobin 28.5 pg (28.0-32.0); Mean Corpuscular Hgb Conc. 33.1 g/dL (32.0-36.0); Monocytes % (auto) 6.1 % (0.0-12.0); Neutrophils % (auto) 70.1 % (37.0-80.0); Nucleated Red Blood Cells % 0.1 %; Red Cell Distribution Width 15.8 % (11.8-14.3)
[2023-08-06 01:00] VITALS: BP 120/68; PULSE 88; RESP 18; TEMP 97.6; O2SAT 94
[2023-08-06 08:00] VITALS: PULSE 90
[2023-08-06 08:41] LABS: Carbon Dioxide 28 mmol/L (20-30); Potassium 4.1 mmol/L (3.5-5.1); Sodium 135 mmol/L (136-145)
[2023-08-06 08:42] LABS: Calcium 9.2 mg/dL (8.5-10.1)
[2023-08-06 08:47] LABS: BUN/Creatinine Ratio 17.5 (10.0-20.0); Blood Urea Nitrogen 14 mg/dL (9-23); Glucose 167 mg/dL (74-106)
[2023-08-06 08:54] LABS: Anion Gap 5 (5-15); Chloride 102 mmol/L (98-107)
[2023-08-06] MEDS: OLANZapine 5 MG TAB PO SCH (11:47)
[2023-08-06] MEDS ORDERED: METF-370 PO (13:20)
[2023-08-06] MEDS ORDERED: OLAN1TAB7 PO (13:20)
== END 2023-08-06 17:00 | disposition home or self-care (01) | DRG 52 ==
LOC: ER 22:12 → EDBD 22:12 → TELE 08-02 11:10 → TELE-EAST 08-03 18:51
PROVIDERS: ADMIT Nurse Practitioner Family; ATTEND Nurse Practitioner Acute Care
DX: G93.41 Metabolic encephalopathy (principal); R65.10 Systemic inflammatory response syndrome (SIRS) of non-infectious origin without acute organ dysfunction; E11.65 Type 2 diabetes mellitus with hyperglycemia; D72.829 Elevated white blood cell count, unspecified; E66.9 Obesity, unspecified; F23 Brief psychotic disorder; F31.9 Bipolar disorder, unspecified; Z78.1 Physical restraint status; Z79.84 Long term (current) use of oral hypoglycemic drugs; Z91.199 Patient's noncompliance with other medical treatment and regimen due to unspecified reason; Z79.4 Long term (current) use of insulin; Z68.35 Body mass index [BMI] 35.0-35.9, adult
CPT/HCPCS: 36415; 70450; 71045; 80048; 80053; 80307; 80320; 81001; 82962; 83735; 84484; 85025; 86592; 87040; 87086; G0378; J1815

== ENCOUNTER 2023-10-09 10:00 | Emergency (ER) | payer MEDICAID ==
[~2023-10-09] VITALS: Ht 172.7 cm; Wt 90.9 kg
[~2023-10-09 10:00] MED LIST changes: -AMOX500C2 PO; -BACDST PO; -BACI1OIN45 EX; -CHL12OR MT; +METF-370 PO; +OLAN1TAB7 PO
[2023-10-09 10:33] VITALS: PULSE 85; RESP 20; O2SAT 96
[2023-10-09 17:04] VITALS: BP 122/67; PULSE 95; RESP 22; TEMP 98.2; O2SAT 96
[2023-10-10] MEDS ORDERED: MORPHINE SULFATE 4 MG/ML SYR/VIAL IV ONE (04:00)
[2023-10-10] MEDS ORDERED: PIPERACILLIN-TAZOB 3.375GM 100 ML IV ONE (04:00)
[2023-10-10] MEDS ORDERED: VANCOMYCIN 1GM/200ML 200 ML IV ONE (04:00)
[2023-10-10] MEDS ORDERED: SODIUM CHLORIDE 0.9% 2,000 ML IV ONE (04:00)
== END 2023-10-10 06:55 | disposition left against medical advice (07) ==
LOC: EDBD 10:00 → ER 10:00
DX: F19.10 Other psychoactive substance abuse, uncomplicated (principal); F99 Mental disorder, not otherwise specified; R45.1 Restlessness and agitation; E11.9 Type 2 diabetes mellitus without complications; F15.90 Other stimulant use, unspecified, uncomplicated

== ENCOUNTER 2024-02-09 15:52 | Emergency (ER) | payer MEDICAID ==
[~2024-02-09] VITALS: Ht 167.6 cm; Wt 81.8 kg
[2024-02-09 18:20] VITALS: BP 122/58; PULSE 86; RESP 16; TEMP 97.8; O2SAT 98
[2024-02-09] MEDS: HYDROcodone-ACET 5/325MG TAB PO ONE (18:31)
[2024-02-09] MEDS: IBUPROFEN 600 MG TAB PO ONE (18:31)
[2024-02-09] MEDS: cefTRIAXone SOD 1,000 MG VL IM ONE (18:31)
--- NOTE | 2024-02-09 18:40 | ED.PDOC ---
Eye-HPI Chief Complaint: Fall Injury Time Seen by MD: 18:01 Primary Care Provider: UNKNOWN Reviewed Notes: Nurses Notes, Air Control/Anti Air Warfare Officer Notes, Medications, Allergies Allergies: Coded Allergies: NO KNOWN ALLERGIES (Unverified , 09/16/22) Home Meds Active Scripts Metformin Hydrochloride (Metformin Hcl) 500 Mg Tab, 1 TAB PO BID for 60 Days, #120 TAB 3 Refills Prov:ARLENE UREÑA EXPLOSIVE ORDNANCE DISPOSAL TECHNICIAN 08/06/23 Olanzapine (OLANZAPINE) 5 Mg Tab, 5 MG PO DAILY for 60 Days, #60 TAB Prov:ARLENE UREÑA EXPLOSIVE ORDNANCE DISPOSAL TECHNICIAN 08/06/23 Mode of Arrival: EMS Past Medical History PAST MEDICAL HISTORY: DM Surgical History: Denies all surgeries ADMINISTRATIVE FELLOW History: Denies all ADMINISTRATIVE FELLOW Hx Family History Family History: Unknown Social History Smoker: Non-Smoker Alcohol: Denies ETOH Use Drugs: Methamphetamine Lives In: Home X-Ray, Labs, Meds, VS Vital Signs Date Time Temp Pulse Resp B/P (MAP) Pulse Ox O2 Delivery O2 Flow Rate FiO2 02/09/24 18:20 86 16 98 Room Air 02/09/24 18:20 97.8 86 16 122/58 (79) 98 97.8 02/09/24 16:00 97.8 86 16 122/58 (79) 98 Current Medications Medications (Trade) Dose Ordered Sig/Zoya Route Start Time Stop Time Status Last Admin Acetaminophen/ Hydrocodone Bitart ([place] 5/325MG Tab) 2 tab ONCE ONCE PO 02/09/24 18:30 02/09/24 18:31 DC 02/09/24 18:31 Ceftriaxone Sodium (Rocephin) 1,000 mg ONCE ONCE IM 02/09/24 18:30 02/09/24 18:31 DC 02/09/24 18:31 Ibuprofen (Motrin Tablet) 600 mg ONCE ONCE PO 02/09/24 18:30 02/09/24 18:31 DC 02/09/24 18:31 Time of 1ST Reevaluation: 18:38 Reevaluation 1ST: Improved Patient Education/Counseling: Diagnosis, Treatment, Prognosis, Need For Follow Up Family Education/Counseling: No Family Present Departure 1 Departure Time of Disposition: 18:38 Impression: Primary Impression: Dental infection Disposition: 01 HOME / SELF CARE / HOMELESS Condition: Stable e-Prescriptions Ibuprofen (Ibuprofen) 800 Mg Tab 1 TAB PO TID PRN for 5 Days, #15 TAB 1 Refill Prov: LAURA ROB 02/09/24 Amoxicillin & Pot Clavulanate (AUGMENTIN TABLET) 875 Mg Tb 1 TAB PO BID for 10 Days, #20 TAB Prov: LAURA ROB 02/09/24 Discharged With: Self Critical Care Note Critical Care Time?: No Stability Stability form required: No LAURA ROB Feb 09, 2024 18:40
[2024-02-09] MEDS ORDERED: IBUP-1456 PO (18:42)
[2024-02-09] MEDS ORDERED: AUG875T PO (18:42)
== END 2024-02-09 18:47 | disposition home or self-care (01) ==
LOC: EDBD 15:52 → ER 15:52
DX: K04.7 Periapical abscess without sinus (principal); E11.9 Type 2 diabetes mellitus without complications; F15.10 Other stimulant abuse, uncomplicated; Z79.84 Long term (current) use of oral hypoglycemic drugs
CPT/HCPCS: 96372; 99283; J0696

== ENCOUNTER 2024-05-24 20:19 | Inpatient (IN) | payer MEDICAID ==
[~2024-05-24] VITALS: Ht 162.6 cm; Wt 103.5 kg
[~2024-05-24 20:19] MED LIST changes: +AUG875T PO; +IBUP-1456 PO
[2024-05-24 21:45] LABS: Basophils # (auto) 0 10 ^3/uL (0-0.2); Basophils % (auto) 0.5 % (0.0-2.0); Eosinophils # (auto) 0 10 ^3/uL (0-0.8); Eosinophils % (auto) 0.3 % (0.0-7.0); Hematocrit 36.2 % (36.0-46.0); Hemoglobin 11.9 g/dL (12.2-16.2); Lymphocytes # (auto) 1.4 10 ^3/uL (0.4-5.4); Lymphocytes % (auto) 17.5 % (10.0-50.0); Mean Corpuscular Hemoglobin 27.4 pg (28.0-32.0); Mean Corpuscular Hgb Conc. 32.8 g/dL (32.0-36.0); Mean Corpuscular Volume 83.6 fL (80.0-100.0); Monocytes # (auto) 0.5 10 ^3/uL (0-1.3); Monocytes % (auto) 6.6 % (0.0-12.0); Neutrophils # (auto) 6.1 10 ^3/uL (1.6-8.6); Neutrophils % (auto) 75.1 % (37.0-80.0); Nucleated Red Blood Cells % 0.1 %; Platelet Count (auto) 379 10^3/uL (140-450); Red Blood Cells 4.33 10^6/uL (4.0-5.20); Red Cell Distribution Width 15.7 % (11.8-14.3); White Blood Cell 8.1 10^3/uL (4.4-10.8)
[2024-05-24 21:59] LABS: Chloride 100 mmol/L (98-107); Potassium 4.1 mmol/L (3.5-5.1)
[2024-05-24 22:00] LABS: Anion Gap 9 (5-15); Carbon Dioxide 24 mmol/L (20-31)
[2024-05-24 22:01] LABS: Calcium 9.8 mg/dL (8.7-10.4)
[2024-05-24 22:06] LABS: BUN/Creatinine Ratio 15.6 (10.0-20.0); Blood Alcohol 3.5 mg/dL (<10); Blood Urea Nitrogen 15 mg/dL (9-23)
[2024-05-24 22:09] LABS: Acetaminophen < 2.0 UG/ML (10.0-20.0); Salicylate < 3.0 mg/dL (-30)
[2024-05-24 22:10] LABS: Glucose 206 mg/dL (74-106); Sodium 133 mmol/L (136-145)
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
[2024-05-25] VITALS (33 sets, daily range): BP systolic 100–157; BP diastolic 58–88; PULSE 91–116; RESP 16–24; TEMP 96.4–98.8; O2SAT 97–100
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
[2024-05-25] MEDS: diphenhdrAMINE HCL 50 MG/1 ML VL IM ONE (04:27)
[2024-05-25] MEDS: LORazepam 2MG/ML-1ML VIAL IM ONE (04:27)
[2024-05-25] MEDS: HALOPERIDOL LACTATE 5 MG/ML INJ VIAL IM ONE (04:27)
[2024-05-25] MEDS: MIDAZOLAM HCL 5 MG/ML-1ML VIAL IM ONE (04:44)
[2024-05-25] MEDS: ROCURONIUM 10MG/ML 10ML VIAL IV ONE (04:54)
[2024-05-25] MEDS: ETOMIDATE (2MG/ML) 20ML VIAL IV ONE (04:54)
[2024-05-25] MEDS: PROPOFOL 100 ML IV SCH (05:00)
[2024-05-25 05:07] LABS: Urine Bacteria None Seen /hpf (None Seen)
[2024-05-25 05:19] LABS: Urine Blood Negative /uL (Negative); Urine Clarity Clear (Clear); Urine Color Light-Yellow (Yellow); Urine Protein, UAD Negative (Negative); Urine Specific Gravity 1.013 (1.001-1.035); Urine Squamous Epithelial Cell None Seen /hpf (<5); Urine Urobilinogen Normal (Negative); Urine WBC < 1 /HPF (0-5); Urine pH 5.5 (5.0-9.0)
[2024-05-25 05:33] LABS: Amphetamine Screen, Urine Neg (NEGATIVE); Cannabinoid Screen, Urine Neg (NEGATIVE)
[2024-05-25 05:40] LABS: Barbiturate Scree,Urine Neg (NEGATIVE); Benzodiazephine Screen, Urine Neg (NEGATIVE); Cocaine Screen, Urine Neg (NEGATIVE); Opiate Scree,Urine Neg (NEGATIVE); Phencyclidine Screen, Urine Neg (NEGATIVE)
[2024-05-25] MEDS: MIDAZOLAM DRIP 50 mg/50mL 50 ML IV SCH (06:15)
--- NOTE | 2024-05-25 06:35 | DVH ---
CHEST RADIOGRAPH Indication: s/p intubation Technique: Single frontal view of the chest was obtained Comparison: XY CHEST PORTABLE on DOS: 04/01/2024 FINDINGS: Lines and Tubes: The endotracheal tube terminates 1.9 cm above the malick. The enteric tube courses b elow the left hemidiaphragm and the tip extends outside the field of view. Lungs: Mild bilateral opacities. Pleura: No effusion. No pneumothorax. Cardiomediastinal contours: Unremarkable Bones: No acute osseous abnormality. IMPRESSION: 1. Endotracheal tube terminates 1.9 cm above the malick. 2. Pulmonary venous congestion.
[2024-05-25] MEDS: fentaNYL Drip 2500mCg/250mlNS 250 ML IV SCH (06:45)
[2024-05-25] MEDS ORDERED: DEXTROSE (50%) 50ML SYRG IV PRN (07:00)
[2024-05-25] MEDS ORDERED: ONDANSETRON HCL 4 MG/2 ML VIAL IV PRN (07:00)
[2024-05-25] MEDS ORDERED: LEVO25TA6 (07:18)
--- NOTE | 2024-05-25 07:19 | DVHHP2 ---
History of Present Illness Reason for Visit: Attempting to hurt self History of Present Illness Melonie Jones is a 48-year-old female with past medical history of diabetes, schizo for hernia, bipolar disorder, anxiety, medication noncompliance, chronic back pain, metabolic encephalopathy, and morbid obesity who presents to the ED attempting to hurt herself also with altered mental status. Patient is currently intubated and ventilated on sedation unable to obtain any history at this time. Psych: Anxiety, Bipolar, Schizophrenia Endocrine: Diabetes Past Medical History Chronic back pain Metabolic encephalopathy Morbid obesity Drugs: Other (Methamphetamine) Review of Systems Allergies: Coded Allergies: NO KNOWN ALLERGIES (Unverified , 09/16/22) Medications Current Medications Medications Dose Ordered Sig/Zoya Route Start Time Stop Time Status Last Admin Dose Admin Propofol 100 ml @ 3.252 mls/ hr Q24H IV 05/25/24 05:00 05/25/24 05:00 3.252 MLS/HR Midazolam HCl 50 ml @ 1 mls/hr Q24H IV 05/25/24 05:00 05/25/24 06:15 1 MLS/HR Fentanyl Citrate 250 ml @ 2.5 mls/hr Q24H IV 05/25/24 05:00 05/25/24 06:45 2.5 MLS/HR Exam Vital Signs Vital Signs Date Time Temp Pulse Resp B/P (MAP) Pulse Ox O2 Delivery O2 Flow Rate FiO2 05/25/24 07:00 112/55 05/25/24 07:00 96.4 99 20 100 96.4 05/25/24 06:09 60 05/25/24 05:00 Mechanical Ventilator+ Cardiovascular: Normal S1, Normal S2 Abdominal: Soft Extremities: No cyanosis, Normal pulses Skin: No significant lesion Labs/Xrays Labs Test 05/25/24 05:05 05/24/24 21:03 Range/Units Urine Color Light-yellow Yellow Urine Clarity Clear Clear Urine pH 5.5 5.0-9.0 Urine Specific [place] 1.013 1.001-1.035 Urine Protein Negative Negative Urine Ketones Negative Negative Urine Blood Negative Negative /uL Urine Nitrite Negative Negative Urine Bilirubin Negative Negative Urine Urobilinogen Normal Negative mg/dL Urine Leukocyte Esterase Negative Negative /uL Urine RBC <1 0 - 4 /hpf Urine Microscopic WBC < 1 0-5 /HPF Urine Squamous Epithelial Cells None seen <5 /hpf Urine Bacteria None seen None Seen /hpf Urine Glucose 1+ H Normal mg/dL Urine Opiates Screen Neg NEGATIVE Urine Fentanyl Screen Neg NEGATIVE Urine Barbiturates Screen Neg NEGATIVE Urine Phencyclidine Screen Neg NEGATIVE Urine Amphetamines Screen Neg NEGATIVE Urine Benzodiazepines Screen Neg NEGATIVE Urine Cocaine Screen Neg NEGATIVE Urine Cannabinoids Screen Neg NEGATIVE White Blood Count 8.1 4.4-10.8 10^3/uL Red Blood Count 4.33 4.0-5.20 10^6/uL Hemoglobin 11.9 L 12.2-16.2 g/dL Hematocrit 36.2 36.0-46.0 % Mean Corpuscular Volume 83.6 80.0-100.0 fL Mean Corpuscular Hemoglobin 27.4 L 28.0-32.0 pg Mean Corpuscular Hemoglobin Concent 32.8 32.0-36.0 g/dL Red Cell Distribution Width 15.7 H 11.8-14.3 % Platelet Count 379 140-450 10^3/uL Mean Platelet Volume 6.9 6.9-10.8 fL Neutrophils (%) (Auto) 75.1 37.0-80.0 % Lymphocytes (%) (Auto) 17.5 10.0-50.0 % Monocytes (%) (Auto) 6.6 0.0-12.0 % Eosinophils (%) (Auto) 0.3 0.0-7.0 % Basophils (%) (Auto) 0.5 0.0-2.0 % Neutrophils # (Auto) 6.1 1.6-8.6 10 ^3/uL Lymphocytes # (Auto) 1.4 0.4-5.4 10 ^3/uL Monocytes # (Auto) 0.5 0-1.3 10 ^3/uL Eosinophils # (Auto) 0 0-0.8 10 ^3/uL Basophils # (Auto) 0 0-0.2 10 ^3/uL Nucleated Red Blood Cells 0.1 % Sodium Level 133 L 136-145 mmol/L Potassium Level 4.1 3.5-5.1 mmol/L Chloride Level 100 98-107 mmol/L Carbon Dioxide Level 24 20-31 mmol/L Anion Gap 9 5-15 Blood Urea Nitrogen 15 9-23 mg/dL Creatinine 0.96 0.550-1.02 mg/dL Glomerular Filtration Rate Calc 73 >90 mL/min BUN/Creatinine Ratio 15.6 10.0-20.0 Serum Glucose 206 H 74-106 mg/dL Calcium Level 9.8 8.7-10.4 mg/dL Salicylates Level < 3.0 -30 mg/dL Acetaminophen Level < 2.0 L 10.0-20.0 UG/ML Plasma/Serum Blood Alcohol 3.5 <10 mg/dL CHEST RADIOGRAPH Indication: s/p intubation Technique: Single frontal view of the chest was obtained Comparison: XY CHEST PORTABLE on DOS: 04/01/2024 FINDINGS: Lines and Tubes: The endotracheal tube terminates 1.9 cm above the malick. The enteric tube courses below the left hemidiaphragm and the tip extends outside the field of view. Lungs: Mild bilateral opacities. Pleura: No effusion. No pneumothorax. Cardiomediastinal contours: Unremarkable Bones: No acute osseous abnormality. IMPRESSION: 1. Endotracheal tube terminates 1.9 cm above the malick. 2. Pulmonary venous congestion. Assessment/Plan Assessment/Plan Assessment Acute encephalopathy Acute hypoxic respiratory failure Hyponatremia Morbid obesity Diabetes type 2 uncontrolled History of schizophrenia History of bipolar disorder History of anxiety History of medication noncompliance History of chronic back pain History of metabolic encephalopathy Plan Admit to ICU Intubated and ventilated Respiratory culture Sedation Alcohol level Drug screen Hemoglobin A1c ISS and Accu-Cheks Lovenox IV fluids CT head ordered Psych consult done in ED Lactic ordered Blood cultures ordered Urine culture ordered UA [place] catheter inserted in ED IV antibiotics-ceftriaxone + azithromycin Respiratory treatments PPIs Home medications reconciled Ammonia level check nurtitional deficits - vit b12, vit d, tsh order [facility] ammonia level abg if any respiratory issues tsh Plan discussed with: Other Date of Service: May 25, 2024 Billing Provider: SHRUTI NIEVES MD Common Visit Codes: [id number] INP/OBS CARE (HIGH) VALERIO LESTER SOCIAL MEDIA MARKETING SPECIALIST May 25, 2024 07:19
[2024-05-25] MEDS: SODIUM CHLORIDE 0.9% 1,000 ML IV SCH ×2 (07:40→14:32)
[2024-05-25 08:38] LABS: Base Excess -1.4 mmol/L (-2.0-3.0)
[2024-05-25] MEDS: ENOXAPARIN SOD 30 MG/0.3 ML SYRINGE SC SCH (10:22)
[2024-05-25] MEDS ORDERED: ALBUTEROL SULF 2.5 MG/0.5ML(0.5%) NEB SOLN NEB PRN ×2 (10:30)
[2024-05-25] MEDS ORDERED: IPRATROPIUM BROM 0.5 MG/2.5ML INH SOL NEB PRN (10:30)
[2024-05-25] MEDS ORDERED: ALBUTEROL SULF 2.5 MG/0.5ML(0.5%) NEB SOLN NEB SCH (10:30)
[2024-05-25] MEDS: cefTRIAXone 1GM/50ML D5W 50 ML IV ONE (10:46)
[2024-05-25] MEDS: ACCU-CHEK COMFORT CURVE STRIP VI SCH (12:04)
[2024-05-25] MEDS: AZITHROMYCIN 500MG/ 250ML 250 ML IV ONE (12:04)
[2024-05-25] MEDS: InsuLIN REG 1unit/0.01ml Soln (100units/ml) SC SCH (12:09)
--- NOTE | 2024-05-25 13:58 | DVHPN2 ---
Progress Note Date Seen: May 25, 2024 Medical Necessity Reason Pt with a Central, PICC or Fol: Yes The following are medically ne: Central Line, [place] Catheter Subjective Patient reports: No new complaints Review of Systems: HEENT:Normal, CVS:Normal, RESPIRATORY:Normal, GI:Normal, :Normal, MSK:Normal, NEURO:Normal Objective vital signs Vital Sign Date Time Temp Pulse Resp B/P (MAP) Pulse Ox O2 Delivery O2 Flow Rate FiO2 05/25/24 13:00 98.4 99 19 109/65 (80) 98 98.4 05/25/24 11:15 30 05/25/24 07:20 Mechanical Ventilator+ Total Intake and Output 05/24/24 05/24/24 05/25/24 15:00 23:00 07:00 Intake Total 48.028 ml Balance 48.028 ml medications Current Medications Medications Dose Ordered Sig/Zoya Route Start Time Stop Time Status Last Admin Dose Admin Propofol 100 ml @ 3.252 mls/ hr Q24H IV 05/25/24 05:00 05/25/24 10:43 16.26 MLS/HR Midazolam HCl 50 ml @ 1 mls/hr Q24H IV 05/25/24 05:00 05/25/24 06:15 1 MLS/HR Fentanyl Citrate 250 ml @ 2.5 mls/hr Q24H IV 05/25/24 05:00 05/25/24 06:45 2.5 MLS/HR Sodium Chloride 1,000 ml @ 100 mls/hr Q10H IV 05/25/24 07:00 05/25/24 07:40 100 MLS/HR Ondansetron HCl 4 mg Q4HP PRN IV 05/25/24 07:00 Enoxaparin Sodium 30 mg DAILY SC 05/25/24 10:00 05/25/24 10:22 30 MG Acetaminophen 650 mg Q6HP PRN PO 05/25/24 07:00 Diagnostic Test (Pha) 1 strip Q6HR 05/25/24 12:00 05/25/24 12:04 1 STRIP Insulin Human Regular Q6HR SC 05/25/24 12:00 05/25/24 12:09 4 UNITS Dextrose 50 ml UD PRN IV 05/25/24 07:00 Ceftriaxone Sodium 50 ml @ 100 mls/hr DAILY@09 IV 05/26/24 09:00 Azithromycin 250 ml @ 125 mls/hr DAILY IV 05/26/24 10:00 Albuterol 2.5 mg Q2HPRN PRN NEB 05/25/24 10:30 Ipratropium [place] 0.5 mg Q4HR NEB 05/25/24 14:00 Ipratropium [place] 0.5 mg Q2HPRN PRN NEB 05/25/24 10:30 Pantoprazole Sodium 40 mg DAILY IV 05/26/24 10:00 Albuterol 2.5 mg Q4HR NEB 05/25/24 14:00 Examination: GENERAL:Normal, HEENT:Normal, NECK:Normal, LUNGS:Normal, LUNGS:Abnormal (intubated), CVS:Normal, ABDOMEN:Normal, MSK:Normal, SKIN:Normal, NEURO:Normal, NEURO:Abnormal (sedated), :Normal laboratory and microbiology Laboratory Tests 05/24/24 21:03 Test 05/24/24 21:03 Range/Units Serum Glucose 206 H 74-106 mg/dL Problem List/Assessment/Plan Problem List/Assessment/Plan #1 acute resp failure: cont acv #2 encephalopathy: ?metabolic #3 dm :ssi #4 morbid obesity #5 bipolar/schizophrenia #6 hypothyroidism: resume med advance care planning- full code- time spent 19mins Plan discussed with: Other (rn) My Orders My Orders Orders - ZAHIRA BERG MD Procedure Category Date Status Time Sodium Chloride 0.9% PHA 05/25/24 Logged 14:00 Nutritional PHA 05/25/24 Logged Supplements (Glucerna 14:00 Complete Blood Count LAB 05/26/24 Verified 06:00 Comprehensive LAB 05/26/24 Verified Metabolic Panel 06:00 Chest Portable XY 05/26/24 Logged 06:00 Abg W/ Co-Ox RT 05/26/24 Logged 06:00 PTPTT LAB 05/26/24 Verified 04:00 Levothyroxine Tablet PHA 05/26/24 Logged (Synthroid Tablet) 06:00 Levothyroxine Tablet PHA 05/25/24 Logged (Synthroid Tablet) 14:00 Olanzapine Tablet PHA 05/26/24 Verified (Zyprexa Tablet) 10:00 Olanzapine Tablet PHA 05/25/24 Verified (Zyprexa Tablet) 14:00 Critical Care Time (mins): 58 (critical care time 58mins) Date of Service: May 25, 2024 Billing Provider: ZAHIRA BERG MD Common Visit Codes: [id number] CARE 30-74 MIN ZAHIRA BERG MD May 25, 2024 13:58
[2024-05-25] MEDS: LEVOTHYROXINE SODIUM 25 MCG TAB PO ONE (14:00)
[2024-05-25] MEDS ORDERED: Glucerna 1.2 Cal 1Liter BOTTLE GT SCH (14:00)
[2024-05-25] MEDS: OLANZapine 5 MG TAB PO ONE (14:00)
[2024-05-25] MEDS: IPRATROPIUM BROM 0.5 MG/2.5ML INH SOL NEB SCH (14:24)
[2024-05-25] MEDS: ALBUTEROL SULF 2.5 MG/0.5ML(0.5%) NEB SOLN NEB SCH (14:24)
[2024-05-25] MEDS: LEVOTHYROXINE SODIUM 25 MCG TAB NG SCH (14:56)
[2024-05-25] MEDS: OLANZapine 5 MG TAB PEG SCH (14:56)
[2024-05-26] VITALS (89 sets, daily range): BP systolic 96–156; BP diastolic 60–100; PULSE 92–130; RESP 12–28; TEMP 97.3–99.1; O2SAT 91–100
[2024-05-26 03:53] LABS: Basophils # (auto) 0 10 ^3/uL (0-0.2); Basophils % (auto) 0.6 % (0.0-2.0); Eosinophils # (auto) 0 10 ^3/uL (0-0.8); Eosinophils % (auto) 0.2 % (0.0-7.0); Hematocrit 31.4 % (36.0-46.0); Hemoglobin 10.8 g/dL (12.2-16.2); Lymphocytes # (auto) 0.8 10 ^3/uL (0.4-5.4); Lymphocytes % (auto) 9.1 % (10.0-50.0); Mean Corpuscular Hemoglobin 28.8 pg (28.0-32.0); Mean Corpuscular Hgb Conc. 34.4 g/dL (32.0-36.0); Mean Corpuscular Volume 83.6 fL (80.0-100.0); Monocytes # (auto) 0.5 10 ^3/uL (0-1.3); Monocytes % (auto) 6.3 % (0.0-12.0); Neutrophils % (auto) 83.8 % (37.0-80.0); Platelet Count (auto) 328 10^3/uL (140-450); Red Blood Cells 3.76 10^6/uL (4.0-5.20); Red Cell Distribution Width 15.4 % (11.8-14.3); White Blood Cell 8.3 10^3/uL (4.4-10.8)
[2024-05-26 04:01] LABS: INR 1.03 (0.9-1.15); Partial Thromboplastin Time 27.5 SEC (24.5-34.5); Prothrombin Time 10.9 sec (9.3-11.8)
[2024-05-26 04:12] LABS: Alanine Aminotransferase 14 U/L (7-40); Albumin 3.9 g/dL (3.2-4.8); Alkaline Phosphatase 79 U/L (46-116); Anion Gap 10 (5-15); BUN/Creatinine Ratio 14.5 (10.0-20.0); Blood Urea Nitrogen 10 mg/dL (9-23); Calcium 9.3 mg/dL (8.7-10.4); Carbon Dioxide 25 mmol/L (20-31); Chloride 102 mmol/L (98-107); Sodium 137 mmol/L (136-145); Total Protein 6.8 g/dL (5.7-8.2)
[2024-05-26 04:13] LABS: Bilirubin, Total 0.5 mg/dL (0.2-1.0)
[2024-05-26 04:18] LABS: Aspartate Aminotransferase 13 U/L (13-40); Glucose 183 mg/dL (74-106)
--- NOTE | 2024-05-26 04:47 | DVH ---
CHEST RADIOGRAPH Indication: RESP FAILURE Technique: Single frontal view of the chest was obtained Comparison: XY CHEST XRAY 1 VIEW on DOS: 05/25/24, XY CHEST PORTABLE on DOS: 08/02/23 FINDINGS: Lines and Tubes: The endotracheal tube terminates 2.5 cm above the malick. The enteric tube courses b elow the left hemidiaphragm and the tip extends outside the field of view. Lungs: Decreased bilateral pulmonary opacities. Pleura: No effusion. No pneumothorax. Cardiomediastinal contours: Unremarkable Bones: No acute osseous abnormality. IMPRESSION: 1. Decreased pulmonary vascular congestion.
[2024-05-26] MEDS ORDERED: LEVOTHYROXINE SODIUM 25 MCG TAB PO SCH (06:00)
[2024-05-26 06:39] LABS: Base Excess -0.9 mmol/L (-2.0-3.0)
[2024-05-26] MEDS: cefTRIAXone 1GM/50ML D5W 50 ML IV SCH (08:57)
[2024-05-26] MEDS: PANTOPRAZOLE 40 MG/10 ML VIAL INJ IV SCH (09:01)
[2024-05-26] MEDS: AZITHROMYCIN 500MG/ 250ML 250 ML IV SCH (09:59)
[2024-05-26] MEDS ORDERED: OLANZapine 5 MG TAB PO SCH (10:00)
--- NOTE | 2024-05-26 10:13 | DVHPN2 ---
Progress Note Date Seen: May 26, 2024 Medical Necessity Reason Pt with a Central, PICC or Fol: Yes The following are medically ne: Central Line, [place] Catheter Subjective Patient reports: No new complaints Review of Systems: HEENT:Normal, CVS:Normal, RESPIRATORY:Normal, GI:Normal, :Normal, MSK:Normal, NEURO:Normal Objective vital signs Vital Sign Date Time Temp Pulse Resp B/P (MAP) Pulse Ox O2 Delivery O2 Flow Rate FiO2 05/26/24 09:56 93 18 121/79 (93) 100 30 05/26/24 08:00 Mechanical Ventilator+ 05/26/24 08:00 98.3 98.3 Total Intake and Output 05/25/24 05/25/24 05/26/24 15:00 23:00 07:00 Intake Total 949.82 ml 806.56 ml 883.112 ml Output Total 450 ml 300 ml Balance 949.82 ml 356.56 ml 583.112 ml medications Current Medications Medications Dose Ordered Sig/Zoya Route Start Time Stop Time Status Last Admin Dose Admin Propofol 100 ml @ 3.252 mls/ hr Q24H IV 05/25/24 05:00 05/26/24 06:30 22.764 MLS/HR Midazolam HCl 50 ml @ 1 mls/hr Q24H IV 05/25/24 05:00 05/25/24 23:09 2 MLS/HR Fentanyl Citrate 250 ml @ 2.5 mls/hr Q24H IV 05/25/24 05:00 05/25/24 06:45 2.5 MLS/HR Ondansetron HCl 4 mg Q4HP PRN IV 05/25/24 07:00 Enoxaparin Sodium 30 mg DAILY SC 05/25/24 10:00 05/26/24 09:01 30 MG Acetaminophen 650 mg Q6HP PRN PO 05/25/24 07:00 Diagnostic Test (Pha) 1 strip Q6HR 05/25/24 12:00 05/26/24 05:41 1 STRIP Insulin Human Regular Q6HR SC 05/25/24 12:00 05/26/24 05:43 3 UNITS Dextrose 50 ml UD PRN IV 05/25/24 07:00 Ceftriaxone Sodium 50 ml @ 100 mls/hr DAILY@09 IV 05/26/24 09:00 05/26/24 08:57 100 MLS/HR Azithromycin 250 ml @ 125 mls/hr DAILY IV 05/26/24 10:00 05/26/24 09:59 125 MLS/HR Albuterol 2.5 mg Q2HPRN PRN NEB 05/25/24 10:30 Ipratropium [place] 0.5 mg Q4HR NEB 05/25/24 14:00 05/26/24 09:56 0.5 MG Ipratropium [place] 0.5 mg Q2HPRN PRN NEB 05/25/24 10:30 Pantoprazole Sodium 40 mg DAILY IV 05/26/24 10:00 05/26/24 09:01 40 MG Albuterol 2.5 mg Q4HR NEB 05/25/24 14:00 05/26/24 09:56 2.5 MG Sodium Chloride 1,000 ml @ 75 mls/hr [id number] IV 05/25/24 14:00 05/26/24 03:20 75 MLS/HR Enteral Nutritional Formula 1,000 ml 30ML/HR GT 05/25/24 14:00 Levothyroxine Sodium 25 mcg QAM@0600 NG 05/25/24 14:30 05/26/24 05:44 25 MCG Olanzapine 5 mg DAILY PEG 05/25/24 14:30 05/26/24 09:02 5 MG Examination: GENERAL:Normal, HEENT:Normal, NECK:Normal, LUNGS:Normal, LUNGS:Abnormal (intubated), CVS:Normal, ABDOMEN:Normal, MSK:Normal, SKIN:Normal, NEURO:Normal, :Normal laboratory and microbiology Laboratory Tests 05/26/24 03:00 Test 05/26/24 03:00 Range/Units Serum Glucose 183 H 74-106 mg/dL Microbiology Date/Time Source Procedure Growth Status 05/25/24 09:10 Voided Urine Urine Culture - Preliminary Resulted Problem List/Assessment/Plan Problem List/Assessment/Plan #1 acute resp failure: cont acv, cpap trial today #2 encephalopathy: ?metabolic #3 dm :ssi #4 morbid obesity #5 bipolar/schizophrenia #6 hypothyroidism: resume med #7 ? acute diastolic heart failure advance care planning- full code- time spent 19mins Plan discussed with: Other (rn) My Orders My Orders Orders - ZAHIRA BERG MD Procedure Category Date Status Time Sodium Chloride 0.9% PHA 3/3/25 In Process 14:00 Nutritional PHA 05/25/24 In Process Supplements (Glucerna 14:00 Chest Portable XY 05/26/24 Resulted 06:00 Abg W/ Co-Ox RT 05/26/24 Logged 06:00 Levothyroxine Tablet PHA 05/25/24 In Process (Synthroid Tablet) 14:30 Olanzapine Tablet PHA 05/25/24 In Process (Zyprexa Tablet) 14:30 Mrsa Screen LUCIO 05/25/24 In Process 23:30 Cpap Trial For Am ORDERS 05/26/24 Transmitted 09:15 Cpap/Sed Vacation Med ORDERS 05/26/24 Transmitted Weaning 10:10 Critical Care Time (mins): 81 (critical care time including cpap trial is 81 mins) Date of Service: May 26, 2024 Billing Provider: ZAHIRA BERG MD Common Visit Codes: [id number] CARE 30-74 MIN, [id number] CARE-EACH +30MIN ZAHIRA BERG MD May 26, 2024 10:13
[2024-05-26] MEDS: EPINEPHrine HCL 0.5 ML NEB NEB ONE (13:40)
[2024-05-26] MEDS: EPINEPHrine HCL 0.5 ML NEB ONE (13:41)
[2024-05-26] MEDS: OLANZapine 5 MG TAB PO ONE (14:11)
[2024-05-26] MEDS ORDERED: MORPHINE SULFATE INJ 2 MG/ml SYRG IV PRN (14:15)
[2024-05-27] VITALS (15 sets, daily range): BP systolic 102–148; BP diastolic 50–72; PULSE 91–118; RESP 16–19; TEMP 97.5–98.6; O2SAT 93–98
--- NOTE | 2024-05-27 05:16 | DVH ---
EXAM: XR Chest, 1 View CLINICAL INDICATION: resp failure TECHNIQUE: Frontal view of the chest. COMPARISON: XY CHEST PORTABLE on DOS: 05/26/24, XY CHEST XRAY 1 VIEW on DOS: 05/25/24, XY CHEST PORTABL E on DOS: 08/02/23 FINDINGS: LUNGS AND PLEURAL SPACES: Right basilar atelectasis or pneumonia. No pneumothorax. HEART: Unremarkable. No cardiomegaly. MEDIASTINUM: Unremarkable. Normal mediastinal contour. BONES/JOINTS: Unremarkable. No acute fracture. OTHER FINDINGS: . IMPRESSION: Right basilar atelectasis or pneumonia.
[2024-05-27 07:35] LABS: Anion Gap 8 (5-15); Carbon Dioxide 26 mmol/L (20-31); Chloride 102 mmol/L (98-107); Potassium 4.1 mmol/L (3.5-5.1); Sodium 136 mmol/L (136-145)
[2024-05-27 07:37] LABS: Calcium 9.2 mg/dL (8.7-10.4)
[2024-05-27 07:41] LABS: BUN/Creatinine Ratio 9.3 (10.0-20.0)
[2024-05-27 07:43] LABS: Glucose 203 mg/dL (74-106)
[2024-05-27 07:44] LABS: Blood Urea Nitrogen 7 mg/dL (9-23)
[2024-05-27 08:15] LABS: Basophils # (auto) 0.1 10 ^3/uL (0-0.2); Basophils % (auto) 0.7 % (0.0-2.0); Eosinophils # (auto) 0 10 ^3/uL (0-0.8); Eosinophils % (auto) 0.3 % (0.0-7.0); Hematocrit 30.1 % (36.0-46.0); Hemoglobin 10.2 g/dL (12.2-16.2); Lymphocytes # (auto) 1.4 10 ^3/uL (0.4-5.4); Lymphocytes % (auto) 18.4 % (10.0-50.0); Mean Corpuscular Hemoglobin 28.5 pg (28.0-32.0); Mean Corpuscular Volume 83.9 fL (80.0-100.0); Monocytes # (auto) 0.7 10 ^3/uL (0-1.3); Neutrophils # (auto) 5.6 10 ^3/uL (1.6-8.6); Neutrophils % (auto) 71.6 % (37.0-80.0); Platelet Count (auto) 290 10^3/uL (140-450); Red Blood Cells 3.58 10^6/uL (4.0-5.20); Red Cell Distribution Width 15.6 % (11.8-14.3); White Blood Cell 7.8 10^3/uL (4.4-10.8)
--- NOTE | 2024-05-27 08:59 | DVH ---
CT HEAD WITHOUT CONTRAST INDICATION: [facility] EXAM DATE: 05/27/2024 08:32 AM COMPARISON: CT HEAD WITHOUT CONTRAST on DOS: 08/02/23 RADIATION DOSE: CTDIvol: 68.54 mGy, DLP: 1350.29 mGy*cm PROCEDURE: CT scans of the head were obtained from the vertex to the skull base. Sagittal and coronal reconstructions were provided. All CT scans at this medical facility are performed using dose modulation techniques as appropriate t o a performed exam including the following: Automated exposure control was utilized; adjustment of th e MA and/or KV according to patient size; and use of iterative reconstruction technique. FINDINGS: There is sulcal and ventricular prominence. The brainshows normal morphology and maharaj-whi te matter differentiation, without intracranial hemorrhage, extra-axial fluid collection, mass effect or acute large vessel infarct. The ventricles are normal in size. The basal cisterns are patent. The skull and visible facial bones are intact. The paranasal sinuses, mastoid air cells and middle ear c avities are well-aerated. The soft tissues of the scalp are unremarkable. IMPRESSION: No acute intracranial abnormality.
[2024-05-27] MEDS: OLANZapine 5 MG TAB PO SCH (09:32)
--- NOTE | 2024-05-27 11:11 | DVHPN2 ---
Progress Note Date Seen: May 27, 2024 Medical Necessity Reason Pt with a Central, PICC or Fol: No Subjective Patient reports: No new complaints Review of Systems: HEENT:Normal, CVS:Normal, RESPIRATORY:Normal, GI:Normal, :Normal, MSK:Normal, NEURO:Normal Objective vital signs Vital Sign Date Time Temp Pulse Resp B/P (MAP) Pulse Ox O2 Delivery O2 Flow Rate FiO2 05/27/24 08:00 97 05/27/24 08:00 18 96 Nasal Cannula* 4 30 Mechanical Ventilator+ 30 05/27/24 05:00 98.4 102/50 (67) 98.4 Total Intake and Output 05/26/24 05/26/24 05/27/24 15:00 23:00 07:00 Intake Total 776.536 ml 680 ml 850 ml Output Total 1100 ml 1200 ml Balance 776.536 ml -420 ml -350 ml medications Current Medications Medications Dose Ordered Sig/Zoya Route Start Time Stop Time Status Last Admin Dose Admin Ondansetron HCl 4 mg Q4HP PRN IV 05/25/24 07:00 Enoxaparin Sodium 30 mg DAILY SC 05/25/24 10:00 05/27/24 09:33 30 MG Acetaminophen 650 mg Q6HP PRN PO 05/25/24 07:00 Diagnostic Test (Pha) 1 strip Q6HR 05/25/24 12:00 05/27/24 05:40 1 STRIP Insulin Human Regular Q6HR SC 05/25/24 12:00 05/27/24 05:44 4 UNITS Dextrose 50 ml UD PRN IV 05/25/24 07:00 Ceftriaxone Sodium 50 ml @ 100 mls/hr DAILY@09 IV 05/26/24 09:00 05/27/24 09:33 100 MLS/HR Azithromycin 250 ml @ 125 mls/hr DAILY IV 05/26/24 10:00 05/27/24 10:00 125 MLS/HR Albuterol 2.5 mg Q2HPRN PRN NEB 05/25/24 10:30 Ipratropium [place] 0.5 mg Q4HR NEB 05/25/24 14:00 05/26/24 14:07 0.5 MG Ipratropium [place] 0.5 mg Q2HPRN PRN NEB 05/25/24 10:30 Pantoprazole Sodium 40 mg DAILY IV 05/26/24 10:00 05/27/24 09:33 40 MG Albuterol 2.5 mg Q4HR NEB 05/25/24 14:00 05/26/24 14:07 2.5 MG Enteral Nutritional Formula 1,000 ml 30ML/HR GT 05/25/24 14:00 Levothyroxine Sodium 25 mcg QAM@0600 NG 05/25/24 14:30 05/27/24 05:35 25 MCG Olanzapine 5 mg DAILY PO 05/27/24 10:00 05/27/24 09:32 5 MG Morphine Sulfate 1 mg Q4HP PRN IV 05/26/24 14:15 Examination: GENERAL:Normal, HEENT:Normal, NECK:Normal, LUNGS:Normal, CVS:Normal, ABDOMEN:Normal, MSK:Normal, SKIN:Normal, NEURO:Normal, :Normal laboratory and microbiology Laboratory Tests 05/27/24 06:33 Test 05/27/24 06:33 Range/Units Serum Glucose 203 H 74-106 mg/dL Microbiology Date/Time Source Procedure Growth Status 05/25/24 23:30 Nose MRSA Screen - Final Complete 05/25/24 11:30 Blood Blood Culture - Preliminary NO GROWTH AFTER 24 HOURS OF INCUBATION. Resulted 05/25/24 09:10 Voided Urine Urine Culture - Final Complete 05/25/24 05:08 Sputum Endotracheal Wash Gram Stain - Final Resulted 05/25/24 05:08 Sputum Endotracheal Wash Respiratory Culture - Preliminary Resulted Problem List/Assessment/Plan Problem List/Assessment/Plan #1 acute resp failure: cont acv, cpap trial today- extubated #2 encephalopathy: ?metabolic #3 dm :ssi #4 morbid obesity #5 bipolar/schizophrenia #6 hypothyroidism: resume med #7 ? acute diastolic heart failure advance care planning- full code- time spent 19mins Plan discussed with: Patient My Orders My Orders Orders - ZAHIRA BERG MD Procedure Category Date Status Time Abg W/ Co-Ox RT 05/26/24 Logged 11:15 Respiratory Misc. RT 05/26/24 Transmitted Order 11:55 Olanzapine Tablet PHA 05/27/24 In Process (Zyprexa Tablet) 10:00 Morphine Sulfate PHA 05/26/24 In Process Injection 14:15 Mechanical Soft Diet DIET 05/26/24 Transmitted Dinner Dietary Evaluation Review Comments: 1.If PCAP sucessuful, off vent, advance to PO CCHO-60 diet after passing a Speech eval. 2. If off vent,PO is not feasible, offer TF-Glucerna @45ml/hr goal rate,(65g pro, 1296 kcal). 3. If remain intubated, GI accessible, TF Glucerna @35ml/hr, supplement with Protein amino acid infusion, Clinimix 41ml/hr. the two madalities total will provide pt with 92.5 g Pro, 1518 kcal, supporting pt's est needs for pro at 84%, energy at 132%. 3. TPN per pharmacy if NPO>7 days if EN/GI is not medically accessible. Expected Outcomes/Goals: gradual wt loss, improved weight bearing, improved physical activites. less back pain, and improved DM control. Date of Service: May 27, 2024 Billing Provider: ZAHIRA BERG MD Common Visit Codes: [id number] INP/OBS CARE(HIGH) Secondary Visit Codes: [id number] CARE PLAN 30 MINUTES ZAHIRA BERG MD May 27, 2024 11:11
[2024-05-28] VITALS (11 sets, daily range): BP systolic 117–139; BP diastolic 53–93; PULSE 92–105; RESP 16–20; TEMP 97.9–98.2; O2SAT 91–98
[2024-05-28] MEDS: ENOXAPARIN SOD 40 MG/0.4 ML SYRINGE SC SCH (09:24)
--- NOTE | 2024-05-28 16:10 | DVHPN2 ---
Progress Note Date Seen: May 28, 2024 Medical Necessity Reason Pt with a Central, PICC or Fol: No Subjective Patient reports: No new complaints Review of Systems: HEENT:Normal, CVS:Normal, RESPIRATORY:Normal, GI:Normal, :Normal, MSK:Normal, NEURO:Normal Objective vital signs Vital Sign Date Time Temp Pulse Resp B/P (MAP) Pulse Ox O2 Delivery O2 Flow Rate FiO2 05/28/24 12:32 98.0 93 16 139/83 (101) 91 98.0 05/28/24 10:19 Room Air 0.0 05/28/24 10:19 21 Total Intake and Output 05/27/24 05/27/24 05/28/24 15:00 23:00 07:00 Intake Total 50 ml 1000 ml 1180 ml Output Total 2400 ml 1900 ml Balance 50 ml -1400 ml -720 ml medications Current Medications Medications Dose Ordered Sig/Zoya Route Start Time Stop Time Status Last Admin Dose Admin Ondansetron HCl 4 mg Q4HP PRN IV 05/25/24 07:00 Acetaminophen 650 mg Q6HP PRN PO 05/25/24 07:00 Diagnostic Test (Pha) 1 strip Q6HR 05/25/24 12:00 05/28/24 11:23 1 STRIP Insulin Human Regular Q6HR SC 05/25/24 12:00 05/28/24 11:26 6 UNITS Dextrose 50 ml UD PRN IV 05/25/24 07:00 Albuterol 2.5 mg Q2HPRN PRN NEB 05/25/24 10:30 Ipratropium [place] 0.5 mg Q4HR NEB 05/25/24 14:00 05/28/24 02:18 0.5 MG Ipratropium [place] 0.5 mg Q2HPRN PRN NEB 05/25/24 10:30 Albuterol 2.5 mg Q4HR NEB 05/25/24 14:00 05/28/24 02:18 2.5 MG Levothyroxine Sodium 25 mcg QAM@0600 NG 05/25/24 14:30 05/28/24 05:00 25 MCG Olanzapine 5 mg DAILY PO 05/27/24 10:00 05/28/24 09:52 5 MG Enoxaparin Sodium 40 mg DAILY SC 05/28/24 10:00 05/28/24 09:24 40 MG Examination: GENERAL:Normal, HEENT:Normal, NECK:Normal, LUNGS:Normal, CVS:Normal, ABDOMEN:Normal, MSK:Normal, SKIN:Normal, NEURO:Normal, :Normal laboratory and microbiology Laboratory Tests 05/27/24 06:33 Test 05/27/24 06:33 Range/Units Serum Glucose 203 H 74-106 mg/dL Microbiology Date/Time Source Procedure Growth Status 05/25/24 23:30 Nose MRSA Screen - Final Complete 05/25/24 11:30 Blood Blood Culture - Preliminary NO GROWTH AFTER 72 HOURS OF INCUBATION. Resulted 05/25/24 09:10 Voided Urine Urine Culture - Final Complete 05/25/24 05:08 Sputum Endotracheal Wash Gram Stain - Final Complete 05/25/24 05:08 Respiratory Culture - Final Streptococcus Group B Complete Problem List/Assessment/Plan Problem List/Assessment/Plan #1 acute resp failure: cont acv, cpap trial today- extubated #2 encephalopathy: ?metabolic #3 dm :ssi, metformin #4 morbid obesity #5 bipolar/schizophrenia #6 hypothyroidism: resume med #7 ? acute diastolic heart failure advance care planning- full code- time spent 19mins Plan discussed with: Patient Dietary Evaluation Review Comments: 1.If PCAP sucessuful, off vent, advance to PO CCHO-60 diet after passing a Speech eval. 2. If off vent,PO is not feasible, offer TF-Glucerna @45ml/hr goal rate,(65g pro, 1296 kcal). 3. If remain intubated, GI accessible, TF Glucerna @35ml/hr, supplement with Protein amino acid infusion, Clinimix 41ml/hr. the two madalities total will provide pt with 92.5 g Pro, 1518 kcal, supporting pt's est needs for pro at 84%, energy at 132%. 3. TPN per pharmacy if NPO>7 days if EN/GI is not medically accessible. Expected Outcomes/Goals: gradual wt loss, improved weight bearing, improved physical activites. less back pain, and improved DM control. Date of Service: May 28, 2024 Billing Provider: ZAHIRA BERG MD Common Visit Codes: [id number] INP/OBS CARE(HIGH) ZAHIRA BERG MD May 28, 2024 16:10
[2024-05-28] MEDS: metFORMIN HYDROCHLORIDE 500 MG TAB PO SCH (18:00)
[2024-05-29] MEDS: HALOPERIDOL LACTATE 5 MG/ML INJ VIAL IM ONE (03:50)
[2024-05-29] MEDS: HALOPERIDOL LACTATE 5 MG/ML INJ VIAL ONE (03:53)
[2024-05-29 08:00] VITALS: PULSE 80; RESP 19
[2024-05-29 09:00] VITALS: BP 127/69; PULSE 94; RESP 18; TEMP 97.9; O2SAT 91
[2024-05-29 10:29] VITALS: PULSE 99; RESP 18; O2SAT 97
[2024-05-29 10:30] VITALS: PULSE 96; RESP 20
[2024-05-29 13:00] VITALS: BP 115/71; PULSE 89; RESP 17; TEMP 97.6; O2SAT 91
[2024-05-29] MEDS: OLANZapine 5 MG TAB PO ONE (16:20)
--- NOTE | 2024-05-29 16:26 | DVHDS2 ---
Discharge Summary Date of Admission May 25, 2024 at 06:55 Date of Discharge: May 29, 2024 Admitting Diagnosis Altered mental status/encephalopathy and hypoxemic respiratory failure Labs/Diagnostic Data: Laboratory Results Test 05/29/24 11:34 05/27/24 06:33 05/26/24 11:38 05/26/24 06:30 POC Glucose 213 mg/dl (70-106) White Blood Count 7.8 10^3/uL (4.4-10.8) Red Blood Count 3.58 10^6/uL (4.0-5.20) Hemoglobin 10.2 g/dL (12.2-16.2) Hematocrit 30.1 % (36.0-46.0) Mean Corpuscular Volume 83.9 fL (80.0-100.0) Mean Corpuscular Hemoglobin 28.5 pg (28.0-32.0) Mean Corpuscular Hemoglobin Concent 34.0 g/dL (32.0-36.0) Red Cell Distribution Width 15.6 % (11.8-14.3) Platelet Count 290 10^3/uL (140-450) Mean Platelet Volume 7.2 fL (6.9-10.8) Neutrophils (%) (Auto) 71.6 % (37.0-80.0) Lymphocytes (%) (Auto) 18.4 % (10.0-50.0) Monocytes (%) (Auto) 9.0 % (0.0-12.0) Eosinophils (%) (Auto) 0.3 % (0.0-7.0) Basophils (%) (Auto) 0.7 % (0.0-2.0) Neutrophils # (Auto) 5.6 10 ^3/uL (1.6-8.6) Lymphocytes # (Auto) 1.4 10 ^3/uL (0.4-5.4) Monocytes # (Auto) 0.7 10 ^3/uL (0-1.3) Eosinophils # (Auto) 0 10 ^3/uL (0-0.8) Basophils # (Auto) 0.1 10 ^3/uL (0-0.2) Nucleated Red Blood Cells 0.0 % Sodium Level 136 mmol/L (136-145) Potassium Level 4.1 mmol/L (3.5-5.1) Chloride Level 102 mmol/L (98-107) Carbon Dioxide Level 26 mmol/L (20-31) Anion Gap 8 (5-15) Blood Urea Nitrogen 7 mg/dL (9-23) Creatinine 0.75 mg/dL (0.550-1.02) Glomerular Filtration Rate Calc 98 mL/min (>90) BUN/Creatinine Ratio 9.3 (10.0-20.0) Serum Glucose 203 mg/dL (74-106) Calcium Level 9.2 mg/dL (8.7-10.4) Blood Gas Specimen Type Arterial Blood Gas Sample Site Right radial Blood Gas Patient Temperature 37.0 Arterial Blood Date Drawn [id number] Arterial Blood pH 7.426 (7.350-7.450) Arterial Blood Partial Pressure CO2 37.5 mmHg (32.0-45.0) Arterial Blood Partial Pressure O2 96.6 mmHg (83.0-108.0) Arterial Blood HCO3 24.1 mmol/L (21.0-28.0) Arterial Blood Oxygen Saturation 97.4 % (94.0-98.0) Arterial Blood Base Excess 0.0 mmol/L (-2.0-3.0) Arterial Blood Oxyhemoglobin 97.1 % (94.0-98.0) Arterial Blood Carboxyhemoglobin 0.1 % (0.5-1.5) Arterial Blood Methemoglobin 0.2 % (0.0-1.5) Jose Juan Test Modified Blood Gas Total Hemoglobin 12.50 g/dL (12.0-16.0) Blood Gas Modality Vent - ac FiO2 % 30.0 Blood Gas Pressure Support 8 Blood Gas PEEP or CPAP 5.0 Blood Gas Set Respiration Rate 18.0 Blood Gas Tidal Volume 450.0 Test 05/26/24 03:00 05/25/24 11:30 05/25/24 05:05 05/24/24 21:03 Prothrombin Time 10.9 sec (9.3-11.8) Prothrombin Time INR 1.03 (0.9-1.15) Activated Partial Thromboplast Time 27.5 SEC (24.5-34.5) Total Bilirubin 0.5 mg/dL (0.2-1.0) Aspartate Amino Transferase (AST) 13 U/L (13-40) Alanine Aminotransferase (ALT) 14 U/L (7-40) Alkaline Phosphatase 79 U/L (46-116) Total Protein 6.8 g/dL (5.7-8.2) Albumin 3.9 g/dL (3.2-4.8) Lactic Acid Level 0.9 mmol/L (0.4-2.0) Ammonia 30 umol/L (11-32) Thyroid Stimulating Hormone (TSH) 5.69 uIU/mL (0.55-4.78) Urine Color Light-yellow (Yellow) Urine Clarity Clear (Clear) Urine pH 5.5 (5.0-9.0) Urine Specific [place] 1.013 (1.001-1.035) Urine Protein Negative (Negative) Urine Ketones Negative (Negative) Urine Blood Negative /uL (Negative) Urine Nitrite Negative (Negative) Urine Bilirubin Negative (Negative) Urine Urobilinogen Normal mg/dL (Negative) Urine Leukocyte Esterase Negative /uL (Negative) Urine RBC <1 /hpf (0 - 4) Urine Microscopic WBC < 1 /HPF (0-5) Urine Squamous Epithelial Cells None seen /hpf (<5) Urine Bacteria None seen /hpf (None Seen) Urine Glucose 1+ mg/dL (Normal) Urine Opiates Screen Neg (NEGATIVE) Urine Fentanyl Screen Neg (NEGATIVE) Urine Barbiturates Screen Neg (NEGATIVE) Urine Phencyclidine Screen Neg (NEGATIVE) Urine Amphetamines Screen Neg (NEGATIVE) Urine Benzodiazepines Screen Neg (NEGATIVE) Urine Cocaine Screen Neg (NEGATIVE) Urine Cannabinoids Screen Neg (NEGATIVE) Hemoglobin A1c 10.0 % A1C (<5.7) Salicylates Level < 3.0 mg/dL (-30) Acetaminophen Level < 2.0 UG/ML (10.0-20.0) Plasma/Serum Blood Alcohol 3.5 mg/dL (<10) Other Laboratory Tests 05/27/24 06:33 Brief Hx & Hospital Course: 48-year-old lady admitted to the hospital from the emergency room with acute encephalopathy and hypoxemic respiratory failure. Patient has history of bipolar disorder and schizophrenia and she expressed intention to hurt herself as well. Patient was admitted initially to ICU after she was intubated. She was eventually extubated and improved. Tele psych consult recommended 5150. Patient still not stable to go home. Arranging for transfer to inpatient psych. Consults/Reason for consult Telepsych consultation/recommended 5150 Condition at Discharge: Good (Medically good but mentally guarded) Final Diagnosis/Problems List Acute respiratory failure status post intubation and extubation Acute encephalopathy Bilateral pneumonia with Streptococcus B Diabetes Morbid obesity Bipolar disorder and schizophrenia Hypothyroidism Anemia Discharge Disposition: Psychiatric Facility Discharge Instruct/Medications Diet: Consistent carbohydrate Activity: No Restrictions, As Tolerated Follow Up/Referral: Patient being transferred to psych facility Medications: As per discharge list Discharge Statement: "Patient was advised to return to the ER or call 911 if any headaches, dizziness, shortness of breath, chest pain, abdominal pain, bleeding, fevers, or worsening of medical condition. Patient was counseled about treatment plan, medications, possible side effects, patientverbalized understanding. All questions were answered to the best of my ability. This discharge took greater then 30 minutes in planning, reviewing documentation, counseling the patient, and discussing with other team members." ASSESSMENT ASSESSMENT Assessment Date of Service: May 29, 2024 Billing Provider: DENYS ALCARAZ MD Common Visit Codes: [id number] DISCH DAY >30min DENYS ALCARAZ MD May 29, 2024 16:26
[2024-05-29 17:00] VITALS: BP 137/93; PULSE 98; RESP 18; TEMP 98; O2SAT 98
[2024-05-29] MEDS: IPRATROPIUM BROM 0.5 MG/2.5ML INH SOL NEB SCH (18:00)
[2024-05-29] MEDS: ALBUTEROL SULF 2.5 MG/0.5ML(0.5%) NEB SOLN NEB SCH (18:00)
[2024-05-29] MEDS ORDERED: risperiDONE 1 MG TAB PO SCH (22:00)
[2024-05-30] VITALS (13 sets, daily range): BP systolic 124–139; BP diastolic 64–86; PULSE 88–102; RESP 17–20; TEMP 97.7–98.7; O2SAT 93–100
[2024-05-30] MEDS: OLANZapine 5 MG TAB PO SCH (09:09)
[2024-05-30] MEDS: NYSTATIN TOPICAL CREAM 15GM TOP SCH (11:00)
--- NOTE | 2024-05-30 17:25 | DVHPN2 ---
Subjective Under breast rash/redness Reviewed: Care Plan, H&P, Labs, Medications, Previous Orders, Radiology, Other (Consultants) Changes from previous H/P or p: No Changes Objective Vitals Vital Signs Date Time Temp Pulse Resp B/P (MAP) Pulse Ox O2 Delivery O2 Flow Rate FiO2 05/30/24 13:00 97.7 96 20 132/70 (90) 96 97.7 05/30/24 08:00 Room Air* 0 21 Intake/Output Intake and Output 05/30/24 07:00 Intake Total 3094 ml Balance 3094 ml Intake Oral 3094 ml # Voids 6 # Bowel Movements 1 General Appearance: Alert, Oriented X3, Cooperative, Other (Somewhat hyper) HEENT: Atraumatic, PERRLA Lungs: Clear to auscultation Cardiovascular: Regular rate (Borderline tachycardia) Abdomen: Normal bowel sounds, Soft, No tenderness Medications Current Medications Medications Dose Ordered Sig/Zoya Route Start Time Stop Time Status Last Admin Dose Admin Ondansetron HCl 4 mg Q4HP PRN IV 05/25/24 07:00 Acetaminophen 650 mg Q6HP PRN PO 05/25/24 07:00 Diagnostic Test (Pha) 1 strip Q6HR 05/25/24 12:00 05/30/24 11:32 1 STRIP Insulin Human Regular Q6HR SC 05/25/24 12:00 05/30/24 11:33 2 UNITS Dextrose 50 ml UD PRN IV 05/25/24 07:00 Albuterol 2.5 mg Q2HPRN PRN NEB 05/25/24 10:30 Ipratropium [place] 0.5 mg Q2HPRN PRN NEB 05/25/24 10:30 Levothyroxine Sodium 25 mcg QAM@0600 NG 05/25/24 14:30 05/30/24 05:26 25 MCG Metformin HCl 500 mg BIDWM PO 05/28/24 18:00 05/30/24 09:08 500 MG Lorazepam 0.5 mg Q6HP PRN PO 05/29/24 13:45 Albuterol 2.5 mg Q4HPRN NEB 05/29/24 18:00 05/30/24 11:03 2.5 MG Ipratropium [place] 0.5 mg Q4HPRN NEB 05/29/24 18:00 05/30/24 11:03 0.5 MG Olanzapine 7.5 mg DAILY PO 05/30/24 10:00 05/30/24 09:09 7.5 MG Nystatin 1 applic BID TOP 05/30/24 10:00 05/30/24 11:00 1 APPLIC Laboratory Results Laboratory Tests 05/27/24 06:33 Urinalysis Test 05/25/24 05:05 Urine Color Light-yellow (Yellow) Urine Clarity Clear (Clear) Urine pH 5.5 (5.0-9.0) Urine Specific [place] 1.013 (1.001-1.035) Urine Protein Negative (Negative) Urine Ketones Negative (Negative) Urine Blood Negative /uL (Negative) Urine Nitrite Negative (Negative) Urine Bilirubin Negative (Negative) Urine Urobilinogen Normal mg/dL (Negative) Urine Leukocyte Esterase Negative /uL (Negative) Urine RBC <1 /hpf (0 - 4) Urine Microscopic WBC < 1 /HPF (0-5) Urine Squamous Epithelial Cells None seen /hpf (<5) Urine Bacteria None seen /hpf (None Seen) Urine Glucose 1+ mg/dL (Normal) H Microbiology Microbiology Date/Time Source Procedure Growth Status 05/25/24 23:30 Nose MRSA Screen - Final Complete 05/25/24 11:30 Blood Blood Culture - Final NO GROWTH AFTER 5 DAYS OF INCUBATION. Complete 05/25/24 09:10 Voided Urine Urine Culture - Final Complete 05/25/24 05:08 Sputum Endotracheal Wash Gram Stain - Final Complete 05/25/24 05:08 Respiratory Culture - Final Streptococcus Group B Complete Assessment/Plan Assessment/Plan Acute respiratory failure status post intubation and extubation Acute encephalopathy Bilateral pneumonia with Streptococcus B Diabetes Morbid obesity Bipolar disorder and schizophrenia Hypothyroidism Anemia Plan: Awaiting transfer to inpatient psych facility. Nystatin cream for the rash in the under breasts areas Plan discussed with: Patient My Orders Orders - DENYS ALCARAZ MD Procedure Category Date Status Time Nystatin Cream PHA 05/30/24 In Process (Mycostatin Cream) 10:00 Date of Service: May 30, 2024 Billing Provider: DENYS ALCARAZ MD Common Visit Codes: [id number] INP/OBS CARE(HIGH) DENYS ALCARAZ MD May 30, 2024 17:25
[2024-05-31] VITALS (9 sets, daily range): BP systolic 108–141; BP diastolic 64–88; PULSE 90–99; RESP 18–20; TEMP 98–98.3; O2SAT 94–100
[2024-05-31] MEDS: ALBUTEROL SULF 2.5 MG/0.5ML(0.5%) NEB SOLN NEB PRN (07:12)
[2024-05-31] MEDS: IPRATROPIUM BROM 0.5 MG/2.5ML INH SOL NEB PRN (07:12)
[2024-05-31] MEDS: ACETAMINOPHEN 325 MG TAB PO PRN (10:31)
--- NOTE | 2024-05-31 15:22 | DVHPN2 ---
Subjective Feels better Reviewed: Care Plan, H&P, Labs, Medications, Previous Orders, Radiology, Other (Consultants) Changes from previous H/P or p: No Changes Objective Vitals Vital Signs Date Time Temp Pulse Resp B/P (MAP) Pulse Ox O2 Delivery O2 Flow Rate FiO2 05/31/24 09:00 98.3 96 18 135/65 (88) 94 98.3 05/31/24 08:12 Room Air* 0 21 Intake/Output Intake and Output 05/31/24 07:00 Intake Total 8645 ml Output Total 2650 ml Balance 5995 ml Intake Oral 8645 ml Output Urine Total 2650 ml # Voids 8 # Bowel Movements 2 General Appearance: Alert, Oriented X3, Cooperative, Other (Somewhat hyper) HEENT: Atraumatic, PERRLA Lungs: Clear to auscultation Cardiovascular: Regular rate (Borderline tachycardia) Abdomen: Normal bowel sounds, Soft, No tenderness Medications Current Medications Medications Dose Ordered Sig/Zoya Route Start Time Stop Time Status Last Admin Dose Admin Ondansetron HCl 4 mg Q4HP PRN IV 05/25/24 07:00 Acetaminophen 650 mg Q6HP PRN PO 05/25/24 07:00 05/31/24 10:31 650 MG Diagnostic Test (Pha) 1 strip Q6HR 05/25/24 12:00 05/31/24 11:49 1 STRIP Insulin Human Regular Q6HR SC 05/25/24 12:00 05/31/24 05:39 8 UNITS Dextrose 50 ml UD PRN IV 05/25/24 07:00 Albuterol 2.5 mg Q2HPRN PRN NEB 05/25/24 10:30 Cancel Ipratropium [place] 0.5 mg Q2HPRN PRN NEB 05/25/24 10:30 Cancel Levothyroxine Sodium 25 mcg QAM@0600 NG 05/25/24 14:30 05/31/24 05:06 25 MCG Metformin HCl 500 mg BIDWM PO 05/28/24 18:00 05/31/24 07:42 500 MG Lorazepam 0.5 mg Q6HP PRN PO 05/29/24 13:45 Olanzapine 7.5 mg DAILY PO 05/30/24 10:00 05/30/24 09:09 7.5 MG Nystatin 1 applic BID TOP 05/30/24 10:00 05/31/24 10:32 1 APPLIC Albuterol 2.5 mg Q4HPRN PRN NEB 05/31/24 02:00 05/31/24 07:12 2.5 MG Ipratropium [place] 0.5 mg Q4HPRN PRN NEB 05/31/24 02:00 05/31/24 07:12 0.5 MG Laboratory Results Laboratory Tests 05/27/24 06:33 Urinalysis Test 05/25/24 05:05 Urine Color Light-yellow (Yellow) Urine Clarity Clear (Clear) Urine pH 5.5 (5.0-9.0) Urine Specific [place] 1.013 (1.001-1.035) Urine Protein Negative (Negative) Urine Ketones Negative (Negative) Urine Blood Negative /uL (Negative) Urine Nitrite Negative (Negative) Urine Bilirubin Negative (Negative) Urine Urobilinogen Normal mg/dL (Negative) Urine Leukocyte Esterase Negative /uL (Negative) Urine RBC <1 /hpf (0 - 4) Urine Microscopic WBC < 1 /HPF (0-5) Urine Squamous Epithelial Cells None seen /hpf (<5) Urine Bacteria None seen /hpf (None Seen) Urine Glucose 1+ mg/dL (Normal) H Microbiology Microbiology Date/Time Source Procedure Growth Status 05/25/24 23:30 Nose MRSA Screen - Final Complete 05/25/24 11:30 Blood Blood Culture - Final NO GROWTH AFTER 5 DAYS OF INCUBATION. Complete 05/25/24 09:10 Voided Urine Urine Culture - Final Complete 05/25/24 05:08 Sputum Endotracheal Wash Gram Stain - Final Complete 05/25/24 05:08 Respiratory Culture - Final Streptococcus Group B Complete Assessment/Plan Assessment/Plan Acute respiratory failure status post intubation and extubation Acute encephalopathy Bilateral pneumonia with Streptococcus B Diabetes Morbid obesity Bipolar disorder and schizophrenia Hypothyroidism Anemia Plan: Continue current plan of care. Awaiting transfer to inpatient psych facility Plan discussed with: Patient, Other (Nursing) Date of Service: May 31, 2024 Billing Provider: DENYS ALCARAZ MD Common Visit Codes: [id number] INP/OBS CARE(MOD) DENYS ALCARAZ MD May 31, 2024 15:22
[2024-06-01] VITALS (9 sets, daily range): BP systolic 124–140; BP diastolic 52–87; PULSE 84–96; RESP 16–20; TEMP 98–98.3; O2SAT 94–99
[2024-06-01] MEDS: NYSTATIN TOPICAL CREAM 15GM TOP ONE (15:00)
--- NOTE | 2024-06-01 15:02 | DVHPN2 ---
Progress Note Date Seen: Jun 01, 2024 Medical Necessity Reason Pt with a Central, PICC or Fol: No Subjective Patient reports: No new complaints Review of Systems: HEENT:Normal, CVS:Normal, RESPIRATORY:Normal, GI:Normal, :Normal, MSK:Normal, NEURO:Normal Objective vital signs Vital Sign Date Time Temp Pulse Resp B/P (MAP) Pulse Ox O2 Delivery O2 Flow Rate FiO2 06/01/24 13:00 93 20 124/87 (99) 96 06/01/24 07:30 Room Air* 0 21 06/01/24 05:00 98.0 98.0 Total Intake and Output 05/31/24 05/31/24 06/01/24 15:00 23:00 07:00 Intake Total 714 ml 1575 ml 1150 ml Output Total 950 ml 1500 ml Balance 714 ml 625 ml -350 ml medications Current Medications Medications Dose Ordered Sig/Zoya Route Start Time Stop Time Status Last Admin Dose Admin Ondansetron HCl 4 mg Q4HP PRN IV 05/25/24 07:00 Acetaminophen 650 mg Q6HP PRN PO 05/25/24 07:00 06/01/24 05:36 650 MG Diagnostic Test (Pha) 1 strip Q6HR 05/25/24 12:00 06/01/24 11:51 1 STRIP Insulin Human Regular Q6HR SC 05/25/24 12:00 06/01/24 11:51 3 UNITS Dextrose 50 ml UD PRN IV 05/25/24 07:00 Albuterol 2.5 mg Q2HPRN PRN NEB 05/25/24 10:30 Cancel Ipratropium [place] 0.5 mg Q2HPRN PRN NEB 05/25/24 10:30 Cancel Levothyroxine Sodium 25 mcg QAM@0600 NG 05/25/24 14:30 06/01/24 05:34 25 MCG Metformin HCl 500 mg BIDWM PO 05/28/24 18:00 05/31/24 17:23 500 MG Lorazepam 0.5 mg Q6HP PRN PO 05/29/24 13:45 Olanzapine 7.5 mg DAILY PO 05/30/24 10:00 05/30/24 09:09 7.5 MG Nystatin 1 applic BID TOP 05/30/24 10:00 05/31/24 21:35 1 APPLIC Albuterol 2.5 mg Q4HPRN PRN NEB 05/31/24 02:00 06/01/24 07:07 2.5 MG Ipratropium [place] 0.5 mg Q4HPRN PRN NEB 05/31/24 02:00 06/01/24 07:07 0.5 MG Examination: GENERAL:Normal, HEENT:Normal, NECK:Normal, LUNGS:Normal, CVS:Normal, ABDOMEN:Normal, MSK:Normal, SKIN:Normal, NEURO:Normal, :Normal laboratory and microbiology Laboratory Tests 05/27/24 06:33 Test 05/27/24 06:33 Range/Units Serum Glucose 203 H 74-106 mg/dL Microbiology Date/Time Source Procedure Growth Status 05/25/24 23:30 Nose MRSA Screen - Final Complete 05/25/24 11:30 Blood Blood Culture - Final NO GROWTH AFTER 5 DAYS OF INCUBATION. Complete 05/25/24 09:10 Voided Urine Urine Culture - Final Complete 05/25/24 05:08 Sputum Endotracheal Wash Gram Stain - Final Complete 05/25/24 05:08 Respiratory Culture - Final Streptococcus Group B Complete Problem List/Assessment/Plan Problem List/Assessment/Plan #1 acute resp failure: cont acv, cpap trial today- extubated #2 encephalopathy: ?metabolic #3 dm :ssi, metformin #4 morbid obesity #5 bipolar/schizophrenia; psych eval, zyprexa #6 hypothyroidism: resume med #7 ? acute diastolic heart failure advance care planning- full code- time spent 19mins Plan discussed with: Patient My Orders My Orders Orders - ZAHIRA BERG MD Procedure Category Date Status Time Olanzapine Tablet PHA 06/01/24 Transmitted (Zyprexa Tablet) 22:00 Nystatin Cream PHA 06/01/24 Transmitted (Mycostatin Cream) 15:00 Nystatin Cream PHA 06/01/24 Transmitted (Mycostatin Cream) 22:00 *Tele Psych Consult CONS 06/01/24 Transmitted 14:58 Fluconazole Tablet PHA 06/02/24 Transmitted (Diflucan Tablet) 10:00 Fluconazole Tablet PHA 06/01/24 Transmitted (Diflucan Tablet) 15:00 May Shower KEVYN 06/01/24 Transmitted 14:58 Dietary Evaluation Review Comments: 1.If PCAP sucessuful, off vent, advance to PO CCHO-60 diet after passing a Speech eval. 2. If off vent,PO is not feasible, offer TF-Glucerna @45ml/hr goal rate,(65g pro, 1296 kcal). 3. If remain intubated, GI accessible, TF Glucerna @35ml/hr, supplement with Protein amino acid infusion, Clinimix 41ml/hr. the two madalities total will provide pt with 92.5 g Pro, 1518 kcal, supporting pt's est needs for pro at 84%, energy at 132%. 3. TPN per pharmacy if NPO>7 days if EN/GI is not medically accessible. Expected Outcomes/Goals: gradual wt loss, improved weight bearing, improved physical activites. less back pain, and improved DM control. Date of Service: Jun 01, 2024 Billing Provider: ZAHIRA BERG MD Common Visit Codes: [id number] INP/OBS CARE(HIGH) ZAHIRA BERG MD Jun 01, 2024 15:02
--- NOTE | 2024-06-01 17:36 | TELE.CONS ---
PSYCHIATRY REASSESSMENT Date: 06/01/24 1720 S: The patient was seen and evaluated at [facility] via telepsychiatry platform. 48yr old female was admitted to [facility] for psychosis. She was seen by psychiatrist Kwasi Fernandez on 05/25 and recommended for admission to [facility] and diagnosed with unspecified psychotic disorder and meth use disorder. JEET Brock has been working on getting her admitted to [facility] but has been unsuccessful finding an open bed. She reported that she is no longer suicidal. She stated she would like to be discharged and has no intention or plan to harm herself or others. She denied having auditory or visual hallucinations. She noted she is able to get food for herself and is okay with being homeless. She refused to take medications while at [facility] and stated she did not want any medications after discharge. MSE: alert and oriented speech-regular rate, rhythm and volume Mood-good Affect-euthymic, congruent. Tht process-linear and goal directed Tht Content-Denied having suicidal or homicidal ideation. Denied auditory or visual hallucinations. Insight-poor Judgment-fair Impulse control-fair. Diagnosis: Unspecified psychotic disorder F 29; Meth use disorder F 15.20 Assessment: This 48 yr old female appears to suffer from meth use disorder and likely psychosis related to her meth use. She is no longer suicidal and appears to be thinking normally. She does not warrant inpatient hospitalization. Plan: 1. Safety. The patient is a low risk for self-harm and may be managed as a n outpatient. 2. Legal-Voluntary. 3. Medications-recommend taking zyprexa, but patient refused medications. She was advised to not use meth as it will increase her psychosis. 4. Case discussed with YOANDY Freeman. 5. Please contact psychiatry if further follow up or reevaluation is desired. Yes JACQUIE BLACKBURN MD Jun 01, 2024 17:36
[2024-06-01] MEDS: FLUCONAZOLE 100 MG TAB PO ONE (18:21)
[2024-06-01] MEDS: OLANZapine 5 MG TAB PO SCH (22:00)
[2024-06-01] MEDS: NYSTATIN TOPICAL CREAM 15GM TOP SCH (22:00)
[2024-06-02] VITALS (9 sets, daily range): BP systolic 120–159; BP diastolic 70–92; PULSE 85–99; RESP 17–20; TEMP 36.8; O2SAT 94–100
[2024-06-02] MEDS: FLUCONAZOLE 100 MG TAB PO SCH (08:36)
[2024-06-02] MEDS: LORazepam 0.5 MG TAB PO PRN (10:17)
--- NOTE | 2024-06-02 12:27 | DVHDS2 ---
Discharge Summary Date of Admission May 25, 2024 at 06:55 Date of Discharge: May 29, 2024 Labs/Diagnostic Data: Laboratory Results Test 06/02/24 06:10 05/27/24 06:33 05/26/24 11:38 05/26/24 06:30 POC Glucose 153 mg/dl (70-106) White Blood Count 7.8 10^3/uL (4.4-10.8) Red Blood Count 3.58 10^6/uL (4.0-5.20) Hemoglobin 10.2 g/dL (12.2-16.2) Hematocrit 30.1 % (36.0-46.0) Mean Corpuscular Volume 83.9 fL (80.0-100.0) Mean Corpuscular Hemoglobin 28.5 pg (28.0-32.0) Mean Corpuscular Hemoglobin Concent 34.0 g/dL (32.0-36.0) Red Cell Distribution Width 15.6 % (11.8-14.3) Platelet Count 290 10^3/uL (140-450) Mean Platelet Volume 7.2 fL (6.9-10.8) Neutrophils (%) (Auto) 71.6 % (37.0-80.0) Lymphocytes (%) (Auto) 18.4 % (10.0-50.0) Monocytes (%) (Auto) 9.0 % (0.0-12.0) Eosinophils (%) (Auto) 0.3 % (0.0-7.0) Basophils (%) (Auto) 0.7 % (0.0-2.0) Neutrophils # (Auto) 5.6 10 ^3/uL (1.6-8.6) Lymphocytes # (Auto) 1.4 10 ^3/uL (0.4-5.4) Monocytes # (Auto) 0.7 10 ^3/uL (0-1.3) Eosinophils # (Auto) 0 10 ^3/uL (0-0.8) Basophils # (Auto) 0.1 10 ^3/uL (0-0.2) Nucleated Red Blood Cells 0.0 % Sodium Level 136 mmol/L (136-145) Potassium Level 4.1 mmol/L (3.5-5.1) Chloride Level 102 mmol/L (98-107) Carbon Dioxide Level 26 mmol/L (20-31) Anion Gap 8 (5-15) Blood Urea Nitrogen 7 mg/dL (9-23) Creatinine 0.75 mg/dL (0.550-1.02) Glomerular Filtration Rate Calc 98 mL/min (>90) BUN/Creatinine Ratio 9.3 (10.0-20.0) Serum Glucose 203 mg/dL (74-106) Calcium Level 9.2 mg/dL (8.7-10.4) Blood Gas Specimen Type Arterial Blood Gas Sample Site Right radial Blood Gas Patient Temperature 37.0 Arterial Blood Date Drawn [id number] Arterial Blood pH 7.426 (7.350-7.450) Arterial Blood Partial Pressure CO2 37.5 mmHg (32.0-45.0) Arterial Blood Partial Pressure O2 96.6 mmHg (83.0-108.0) Arterial Blood HCO3 24.1 mmol/L (21.0-28.0) Arterial Blood Oxygen Saturation 97.4 % (94.0-98.0) Arterial Blood Base Excess 0.0 mmol/L (-2.0-3.0) Arterial Blood Oxyhemoglobin 97.1 % (94.0-98.0) Arterial Blood Carboxyhemoglobin 0.1 % (0.5-1.5) Arterial Blood Methemoglobin 0.2 % (0.0-1.5) Jose Juan Test Modified Blood Gas Total Hemoglobin 12.50 g/dL (12.0-16.0) Blood Gas Modality Vent - ac FiO2 % 30.0 Blood Gas Pressure Support 8 Blood Gas PEEP or CPAP 5.0 Blood Gas Set Respiration Rate 18.0 Blood Gas Tidal Volume 450.0 Test 05/26/24 03:00 05/25/24 11:30 05/25/24 05:05 05/24/24 21:03 Prothrombin Time 10.9 sec (9.3-11.8) Prothrombin Time INR 1.03 (0.9-1.15) Activated Partial Thromboplast Time 27.5 SEC (24.5-34.5) Total Bilirubin 0.5 mg/dL (0.2-1.0) Aspartate Amino Transferase (AST) 13 U/L (13-40) Alanine Aminotransferase (ALT) 14 U/L (7-40) Alkaline Phosphatase 79 U/L (46-116) Total Protein 6.8 g/dL (5.7-8.2) Albumin 3.9 g/dL (3.2-4.8) Lactic Acid Level 0.9 mmol/L (0.4-2.0) Ammonia 30 umol/L (11-32) Thyroid Stimulating Hormone (TSH) 5.69 uIU/mL (0.55-4.78) Urine Color Light-yellow (Yellow) Urine Clarity Clear (Clear) Urine pH 5.5 (5.0-9.0) Urine Specific [place] 1.013 (1.001-1.035) Urine Protein Negative (Negative) Urine Ketones Negative (Negative) Urine Blood Negative /uL (Negative) Urine Nitrite Negative (Negative) Urine Bilirubin Negative (Negative) Urine Urobilinogen Normal mg/dL (Negative) Urine Leukocyte Esterase Negative /uL (Negative) Urine RBC <1 /hpf (0 - 4) Urine Microscopic WBC < 1 /HPF (0-5) Urine Squamous Epithelial Cells None seen /hpf (<5) Urine Bacteria None seen /hpf (None Seen) Urine Glucose 1+ mg/dL (Normal) Urine Opiates Screen Neg (NEGATIVE) Urine Fentanyl Screen Neg (NEGATIVE) Urine Barbiturates Screen Neg (NEGATIVE) Urine Phencyclidine Screen Neg (NEGATIVE) Urine Amphetamines Screen Neg (NEGATIVE) Urine Benzodiazepines Screen Neg (NEGATIVE) Urine Cocaine Screen Neg (NEGATIVE) Urine Cannabinoids Screen Neg (NEGATIVE) Hemoglobin A1c 10.0 % A1C (<5.7) Salicylates Level < 3.0 mg/dL (-30) Acetaminophen Level < 2.0 UG/ML (10.0-20.0) Plasma/Serum Blood Alcohol 3.5 mg/dL (<10) Other Laboratory Tests 05/27/24 06:33 Brief Hx & Hospital Course: see dictated note Condition at Discharge: Fair Final Diagnosis/Problems List bipolar disorder Discharge Disposition: Home Discharge Instruct/Medications Diet: Consistent carbohydrate Activity: No Restrictions, As Tolerated Follow Up/Referral: fu with pcp/psych Medications: script to pharmacy Discharge Statement: "Patient was advised to return to the ER or call 911 if any headaches, dizziness, shortness of breath, chest pain, abdominal pain, bleeding, fevers, or worsening of medical condition. Patient was counseled about treatment plan, medications, possible side effects, patientverbalized understanding. All questions were answered to the best of my ability. This discharge took greater then 30 minutes in planning, reviewing documentation, counseling the patient, and discussing with other team members." ASSESSMENT ASSESSMENT Assessment bipolar disorder Date of Service: Jun 02, 2024 Billing Provider: ZAHIRA BERG MD Common Visit Codes: [id number] DISCH DAY >30min ZAHIRA BERG MD Jun 02, 2024 12:27
[2024-06-02] MEDS ORDERED: OLAN5TAB2 PO (12:34)
[2024-06-02] MEDS ORDERED: FLUC200T50 PO (12:34)
[2024-06-02] MEDS ORDERED: LEVO25TA6 PO (12:34)
[2024-06-02] MEDS ORDERED: IBUP1TAB4 PO (12:34)
[2024-06-02] MEDS ORDERED: FAMO20TA10 PO (12:34)
[2024-06-02] MEDS ORDERED: METF-371 PO (12:34)
[2024-06-02] MEDS ORDERED: CLOT-53 EX (12:34)
--- NOTE | 2024-06-02 12:44 | DVHDS ---
DATE OF DISCHARGE: 06/02/2024 HISTORY OF PRESENT ILLNESS: The patient is a 48-year-old lady who was admitted with noncompliance and altered mental status and was subsequently intubated and mechanically ventilated. She has history of anxiety, bipolar disorder, schizophrenia, diabetes. She also has history of methamphetamine abuse. HOSPITAL COURSE: The patient's tox screen was negative for alcohol. Post admission, the patient was extubated. Her A1c was 10. TSH was 5.6. The patient's sputum grew Streptococcus. The patient was seen initially by Psychiatry, who recommended inpatient. A reevaluation, however, has recommended that the patient can voluntarily leave the hospital with outpatient psych followup. She will now be discharged home to be on Zyprexa 5 mg p.o. b.i.d., levothyroxine 25 mcg daily, metformin 850 mg b.i.d., ibuprofen p.r.n. for pain, Pepcid 20 mg b.i.d. and fluconazole 200 mg daily for 7 days with clotrimazole local ointment. She will follow up with her primary and psychiatrist. FINAL DIAGNOSES: Therefore, * Acute respiratory failure. * Encephalopathy, questionably metabolic. * Bipolar/schizophrenic disorder. * Diabetes mellitus. * Morbid obesity. * Hypothyroidism. * Questionable acute diastolic heart failure. * History of drug abuse. Time spent in discharge planning and review of plan with the patient and nursing was 39 minutes. MD GARLAND Dseai/DEMETRICE TID: [id number] RECEIPT: [id number]
== END 2024-06-02 17:45 | disposition home or self-care (01) | DRG 133 ==
LOC: ER 20:19 → OVERFLOW 05-25 06:55 → ICU WEST 05-25 23:29 → TELE-WESTW 05-26 23:28 → WEST WING 05-27 22:32
PROVIDERS: ADMIT Internal Medicine; ATTEND Internal Medicine
PROC: 0BH17EZ Insertion of Endotracheal Airway into Trachea, Via Natural or Artificial Opening (ICD-10-PCS; 2024-05-25)
PROC: 5A1945Z Respiratory Ventilation, 24-96 Consecutive Hours (ICD-10-PCS; 2024-05-25)
PROC: 5A1935Z Respiratory Ventilation, Less than 24 Consecutive Hours (ICD-10-PCS; principal; 2024-05-27)
DX: J96.01 Acute respiratory failure with hypoxia (principal); G93.41 Metabolic encephalopathy; I50.31 Acute diastolic (congestive) heart failure; J15.4 Pneumonia due to other streptococci; I11.0 Hypertensive heart disease with heart failure; E87.1 Hypo-osmolality and hyponatremia; E11.65 Type 2 diabetes mellitus with hyperglycemia; E03.9 Hypothyroidism, unspecified; D64.9 Anemia, unspecified; F20.9 Schizophrenia, unspecified; F31.9 Bipolar disorder, unspecified; E66.01 Morbid (severe) obesity due to excess calories; G89.29 Other chronic pain; F41.9 Anxiety disorder, unspecified; F15.10 Other stimulant abuse, uncomplicated; M54.9 Dorsalgia, unspecified; Z79.1 Long term (current) use of non-steroidal anti-inflammatories (NSAID); Z59.00 Homelessness unspecified; Z79.899 Other long term (current) drug therapy; Z79.84 Long term (current) use of oral hypoglycemic drugs; Z79.2 Long term (current) use of antibiotics; Z91.148 Patient's other noncompliance with medication regimen for other reason; Z68.41 Body mass index [BMI] 40.0-44.9, adult; Z79.4 Long term (current) use of insulin; Z91.199 Patient's noncompliance with other medical treatment and regimen due to unspecified reason
CPT/HCPCS: 31500; 36415; 36600; 70450; 71045; 80048; 80053; 80307; 80320; 80329; 81001; 82140; 82805; 82962; 83036; 83605; 84443; 85025; 85610; 85730; 87040; 87070; 87077; 87081; 87086; 87205; 94003; 94640; 99291; G0378; J1815; J2250; J2470; J2704